=== PATIENT | female | born 1990 | race Caucasian/White ===

== ENCOUNTER 2024-07-05 07:43 | Inpatient (IN) ==
--- NOTE | 2024-07-05 08:29 | History & Physical Report ---
Date of Service July 05, 2024 Assessment & Plan (1) Hypertension affecting in third trimester: (2) Obesity affecting , antepartum: Plan -Vital signs stable -GBS negative - Category Trace I -Start Pitocin - Insert Cervical Joe Balloon - Wants to try unmedicated delivery - Ordered labs for today Admission and Anticipated Discharge Date Admission Date: July 05, 2024 History of Present Illness Chief Complaint: Induction of Labor Primary Care Provider: NO PCP Patient is a 33 yo female currently at 37+3WGA with an TACO 07/24/2024 as determined by LMP who is here for induction of labor. Her was complicated by Obesity and Hypertension Not felt contractions ; movement present; no fluid loss; had bloody show External FHT and external uterine monitors used; category I tracing; normal FHT variability Had regular appointments with OB. Allergies Allergy/AdvReac Type Severity Reaction Status Date / Time Beef Containing Products Allergy Gastrointestinal Verified 07/05/24 09:29 Upset dextromethorphan AdvReac Intermediate Gastrointestinal Verified 07/05/24 08:15 [From NyQuil] Upset doxylamine [From NyQuil] AdvReac Intermediate Gastrointestinal Verified 07/05/24 08:15 Upset pseudoephedrine [From NyQuil] AdvReac Intermediate Gastrointestinal Verified 07/05/24 08:15 Upset Home Medications Medication Instructions Recorded Confirmed Type aspirin 81 mg tablet,delayed 81 mg PO DAILY 02/08/24 07/05/24 History release docosahexaenoic acid 200 mg 1 mg PO DAILY 03/08/24 07/05/24 History capsule ( DHA) cetirizine 10 mg tablet (Zyrtec) 10 mg PO DAILY 07/05/24 07/05/24 History Patient History Medical History (Updated 07/05/24 @ 08:14 by Michelle Moss RN) Pre-eclampsia Dx at 35 weeks. Migraine Varicella vaccination No pertinent family history Irritable bowel syndrome (IBS) Ovarian cyst Surgical History S/P cubital tunnel release Family History Grandfather (Maternal) Colorectal cancer Father Hypertension Grandmother (Paternal) Heart disease Grandfather (Paternal) Stroke Grandmother (Maternal) Stroke Denies family history of Ovarian cancer Breast cancer Social History (Updated 07/05/24 @ 08:15 by Michelle Moss RN) Smoking Status: Never smoker Do You Dip or Chew Tobacco: No; Hx Alcohol Use: No Hx Substance Use: No Preferred Language: Pashto Visual Impairment: No Limitations Accounts Payable Technician Required: No Beliefs That Will Affect Care: None marital status: marital status details: Kiko Rodriguez Current Living Situation: Spouse and Family Current Living Situation Comment: lives with spouse, step son, cats-spouse changing litter current occupational status: employed 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 No acute distress CV: Regular rate and rhythm. No murmurs. Respiratory: CTA bilaterally. No rhonchi, wheezes, or crackles. No increased work of breathing. Abdomen: Gravid; Soft, nontender upon palpation Lower extremities: No LE edema. No deep calf pain. Ofelia's negative bilaterally. Results & Data Vital Signs (Past 12 Hours) Vital Signs Pulse BP 07/05/24 08:03 88 143/88 H Supervising Physician Co-Signing Physician Notes Resident Physician Supervision Note: I was present with Dr. Blanco during the history and exam. I discussed the case with the resident and agree with the findings and plan as documented in the note. Any exceptions or clarifications are listed here: 33yo at 37wks ega presents to LD for planned induction for preeclampsia, no severe features. Has mild solano this am, did take tylenol at home. No other concerns. Unfavorable cx and had planned joe ripening balloon last pm but due to census was unable to come. That and pitocin planned for today. Exam, abd soft gravid nt, efw 7, no ruq pain. ext tr edema. dtrs +1 no clonus. fhts categ 1. sve ft/long/high/post. toco irregular. PROCEDURE: sse cx visualized, grasped on ant lip with ring forcep, joe through os and balloon inflated with 40cc sterile water. Spec removed, joe taped to leg. pt yoni well. Will plan labs. admit, iv, start pitocin. arom when able. pt and partner agreeable. Documented By: Lori Mckenzie MD, FACOG
[2024-07-05] MEDS ORDERED: LIDOCAINE 1% LOCAL 20 ML VIAL INFIL PRN (08:53)
[2024-07-05] MEDS ORDERED: OXYTOCIN 30 UNITS/NSS 30 UNITS/500 ML BAG IV PRN (08:53)
[2024-07-05] MEDS: OXYTOCIN 30 UNITS/NSS 30 UNITS/500 ML BAG IV PRN (09:22)
[2024-07-05] MEDS: LACTATED RINGER'S 1,000 ML IV PRN (09:22)
[2024-07-05 10:11] LABS: Hematocrit (blood only) 34.8 % (37.0-47.0); Hemoglobin 11.7 g/dl (12.0-16.0); Mean Corpuscular Hemoglobin 30.2 pg (25.0-34.0); Mean Corpuscular Hgb Conc 33.6 g/dL (32.0-36.0); Mean Corpuscular Volume 89.7 fL (80.0-100.0); Mean Platelet Volume 10.6 fL (9.4-12.4); Platelet Count 255 K/uL (130-400); RDW Standard Deviation 45.3 fL (36.4-46.3); Red Blood Count 3.88 M/uL (4.20-5.40); White Blood Count 14.74 K/ul (4.8-10.8)
[2024-07-05 10:31] LABS: Albumin Globulin Ratio 1.2 (0.9-2); Albumin Level 3.2 gm/dl (3.4-5.0); Bilirubin,Total 0.4 mg/dl (0.2-1.0); Calcium 8.8 mg/dl (8.6-10.3); Creatinine Clr Calc Pharmacy 189.3 ml/min; Globulin 2.6 gm/dl (2.5-4.0); Potassium 3.8 mmol/L (3.5-5.1); Total Protein 5.8 gm/dl (6.0-8.3)
[2024-07-05] MEDS: BUTORPHANOL TARTRATE 1 MG/ML VIAL ONE (14:41)
[2024-07-05] MEDS: BUTORPHANOL TARTRATE 1 MG/ML VIAL IV ONE (15:01)
--- NOTE | 2024-07-05 16:09 | Labor Progress Brief Note ---
Date of Service July 05, 2024 Subjective feeling pain with ctx. used stadol earlier and helped. Assessment & Plan (1) Encounter for induction of labor: (2) Pre-eclampsia: Plan will see how arom helps labor pattern. fhts categ 1. c/w pit. can have another dose of stadol if she wants. Admission and Anticipated Discharge Date Admission Date: July 05, 2024 Physical Exam Constitutional: WD/WN, vitals as above Genitourinary: Manual OB Exam: + cervical dilation (2-3), + cervical effacement (75%), + station -2 and + amniotic fluid (arom) clear OB Exam Monitor Tracing: + external FHT monitor used, + external uterine monitor used (q2, pit at 17), + category I and + normal FHT variability Results & Data Vital Signs (Past 12 Hours) Vital Signs Temp Pulse Resp BP 07/05/24 15:24 68 130/67 07/05/24 15:00 20 07/05/24 15:00 98.1 F 20 07/05/24 14:24 74 137/68 07/05/24 13:24 77 164/83 H 07/05/24 12:25 83 149/77 H 07/05/24 11:24 70 128/69 07/05/24 11:00 98.2 F 20 07/05/24 10:51 71 112/57 L 07/05/24 10:31 69 114/62 07/05/24 09:23 85 122/72 07/05/24 08:11 98.2 F 16 07/05/24 08:03 88 143/88 H Coding Level of Care Code None Diagnoses Encounter for induction of labor Z34.90 Pre-eclampsia O14.90
--- NOTE | 2024-07-05 18:54 | Labor Progress Brief Note ---
Date of Service July 05, 2024 Subjective doing well, feels ctx. no solano. Assessment & Plan (1) Encounter for induction of labor: (2) Pre-eclampsia: Plan good cx change. c/w pitocin. fhts categ1. bps noted. Admission and Anticipated Discharge Date Admission Date: July 05, 2024 Physical Exam Constitutional: WD/WN, vitals as above Genitourinary: Manual OB Exam: + cervical dilation 3 cm, + cervical effacement (75%) and + station -2 OB Exam Monitor Tracing: + external FHT monitor used, + external uterine monitor used (q3), + category I and + normal FHT variability Results & Data Vital Signs (Past 12 Hours) Vital Signs Temp Pulse Resp BP 07/05/24 18:24 96 H 144/88 H 07/05/24 17:00 98.2 F 07/05/24 16:24 75 150/69 H 07/05/24 15:24 68 130/67 07/05/24 15:00 20 07/05/24 15:00 98.1 F 20 07/05/24 14:24 74 137/68 07/05/24 13:24 77 164/83 H 07/05/24 12:25 83 149/77 H 07/05/24 11:24 70 128/69 07/05/24 11:00 98.2 F 20 07/05/24 10:51 71 112/57 L 07/05/24 10:31 69 114/62 07/05/24 09:23 85 122/72 07/05/24 08:11 98.2 F 16 07/05/24 08:03 88 143/88 H Coding Level of Care Code None Diagnoses Encounter for induction of labor Z34.90 Pre-eclampsia O14.90
[2024-07-05] MEDS: ACETAMINOPHEN 325 MG TAB PO STA (21:19)
[2024-07-05] MEDS: BUTORPHANOL TARTRATE 1 MG/ML VIAL IV PRN (21:20)
--- NOTE | 2024-07-05 21:44 | Labor Progress Brief Note ---
Date of Service July 05, 2024 Subjective feeling pain with ctx. requested stadol and now feeling better. had her typical mild solano and took Tylenol. Assessment & Plan (1) Encounter for induction of labor: (2) Pre-eclampsia: Plan we will cont with pit but if after reaching 30 for 30min if no signif status change, will halve pit and reclimb. discussed benefits that epidural could bring with pelvis relaxation, pt will consider. of note few bps in height of more pain were elevated but improved now and plan recheck in 30min but if persistent elevation will need meds. pt aware. fhts categ 1. Admission and Anticipated Discharge Date Admission Date: July 05, 2024 Physical Exam Constitutional: WD/WN, vitals as above Genitourinary: Manual OB Exam: + cervical dilation 3 cm, + cervical effacement (75%) and + station -2 OB Exam Monitor Tracing: + external FHT monitor used, + external uterine monitor used (q2-4 pit at 27), + category I and + normal FHT variability Results & Data Vital Signs (Past 12 Hours) Vital Signs Temp Pulse Resp BP 07/05/24 21:05 20 07/05/24 21:05 98.2 F 20 07/05/24 20:29 90 161/75 H 07/05/24 20:27 100 H 179/81 H 07/05/24 20:24 96 H 195/86 H 07/05/24 19:24 93 H 149/78 H 07/05/24 18:58 98.4 F 90 18 137/72 07/05/24 18:24 96 H 144/88 H 07/05/24 17:00 98.2 F 07/05/24 16:24 75 150/69 H 07/05/24 15:24 68 130/67 07/05/24 15:00 20 07/05/24 15:00 98.1 F 20 07/05/24 14:24 74 137/68 07/05/24 13:24 77 164/83 H 07/05/24 12:25 83 149/77 H 07/05/24 11:24 70 128/69 07/05/24 11:00 98.2 F 20 07/05/24 10:51 71 112/57 L 07/05/24 10:31 69 114/62 Coding Level of Care Code None Diagnoses Encounter for induction of labor Z34.90 Pre-eclampsia O14.90
[2024-07-05] MEDS ORDERED: ePHEDrine sulfate 50 MG/ML AMP IV PRN (23:28)
[2024-07-05] MEDS ORDERED: SODIUM CHLORIDE 0.9% PF INJ 10 ML VIAL EPI STA (23:28)
[2024-07-05] MEDS ORDERED: SODIUM CHLORIDE 0.9% PF INJ 10 ML VIAL EPI PRN (23:28)
[2024-07-05] MEDS ORDERED: ROPIVACAINE 0.5% PF 5 MG/ML 20 ML VIAL EPI PRN (23:28)
[2024-07-05] MEDS ORDERED: LIDOCAINE 2%/EPINEPHRINE 1:200,000 20 ML PF EPI STA (23:28)
[2024-07-05] MEDS ORDERED: BUPIVACAINE 0.25% PF 30 ML VIAL EPI PRN (23:28)
[2024-07-05] MEDS ORDERED: BUPIVACAINE 0.25% PF 30 ML VIAL EPI STA (23:28)
[2024-07-05] MEDS ORDERED: diphenhydrAMINE 50 MG/ML VIAL IV PRN (23:28)
[2024-07-05] MEDS ORDERED: NALOXONE HCL 0.4 MG/1 ML VIAL/CARP IV PRN (23:28)
[2024-07-05] MEDS ORDERED: LIDOCAINE 2% MPF LOCAL 5 ML VIAL EPI PRN (23:28)
[2024-07-05] MEDS ORDERED: NALOXONE HCL 1 MG in SODIUM CHLORIDE 0.9% 1,000 ML IV PRN (23:28)
[2024-07-05] MEDS ORDERED: fentaNYL citrate PF 100 MCG/2 ML VIAL EPI PRN (23:28)
[2024-07-05] MEDS ORDERED: fentaNYL citrate PF 100 MCG/2 ML VIAL EPI STA (23:28)
[2024-07-05] MEDS ORDERED: NALBUPHINE HCL INJ 10 MG/ML AMP IV PRN (23:28)
--- NOTE | 2024-07-05 23:29 | Anesthesiology Consultation ---
Date of Service July 05, 2024 Assessment & Plan (1) Encounter for pre-operative examination: Chart Review Chart Review: Patient NOT seen in Pre Admission Testing and Acceptable Risk for Labor Epidural Consults Requested none History Height/Weight Height: 5 ft 1 in Weight: 115.666 kg Allergies Allergy/AdvReac Type Severity Reaction Status Date / Time Beef Containing Products Allergy Gastrointestinal Verified 07/05/24 09:29 Upset dextromethorphan AdvReac Intermediate Gastrointestinal Verified 07/05/24 08:15 [From NyQuil] Upset doxylamine [From NyQuil] AdvReac Intermediate Gastrointestinal Verified 07/05/24 08:15 Upset pseudoephedrine [From NyQuil] AdvReac Intermediate Gastrointestinal Verified 07/05/24 08:15 Upset Medications Home Medications Medication Instructions Recorded Confirmed Last Taken aspirin 81 mg tablet,delayed 81 mg PO DAILY 02/08/24 07/05/24 07/05/24 release docosahexaenoic acid 200 mg 1 mg PO DAILY 03/08/24 07/05/24 07/05/24 capsule ( DHA) cetirizine 10 mg tablet (Zyrtec) 10 mg PO DAILY 07/05/24 07/05/24 07/05/24 Active Medications Generic Name Dose Route Start Last Admin Trade Name Freq PRN Reason Stop Dose Admin Butorphanol Tartrate 1 mg 07/05/24 16:11 07/05/24 21:20 Butorphanol Tartrate 1 Mg/Ml Vial IV 08/04/24 16:10 1 mg NOW PRN Administration Pain Lactated Ringer's 1,000 mls @ 125 mls/hr 07/05/24 08:53 07/05/24 23:48 Lr IV 07/06/24 08:52 Infused .Q8H PRN Infusion L&D Protocol Protocol Oxytocin 30 units in 500 mls @ 15 mls/hr 07/05/24 08:53 07/05/24 23:05 Pitocin 30 Units/Nss IV 07/07/24 08:52 0.9 units/hr .Q24H PRN 15 mls/hr Labor Induction/Augmentation Titration Protocol 0.9 UNITS/HR Past Medical History Medical History (Updated 07/05/24 @ 23:29 by Alin Loepz MD) Encounter for pre-operative examination Migraine Varicella vaccination No pertinent family history Irritable bowel syndrome (IBS) Ovarian cyst Exercise / Class Metabolic Activity II 4-5 Yardwork/Stairs/Walk up hill Past Family History Family History Grandfather (Maternal) Colorectal cancer Father Hypertension Grandmother (Paternal) Heart disease Grandfather (Paternal) Stroke Grandmother (Maternal) Stroke Denies family history of Ovarian cancer Breast cancer Past Surgical History Surgical History S/P cubital tunnel release Social History Smoking Status: Never smoker Do You Dip or Chew Tobacco: No Hx Alcohol Use: No Hx Substance Use: No substance use type: does not use Physical Exam Vital Signs Last Vital Signs Temp 36.6 C 07/05/24 23:00 Pulse 93 H 07/05/24 23:50 Resp 18 07/05/24 23:00 BP 156/76 H 07/05/24 22:29 Pulse Ox 100 07/05/24 23:50 Testing Laboratory Results 07/05/24 09:31 07/05/24 09:31 Blood Type A Positive 07/05/24 09:31 Antibody Screen NEGATIVE 07/05/24 09:31
[2024-07-05] MEDS: fentaNYL citrate PF 100 MCG/2 ML VIAL ONE (23:54)
[2024-07-05] MEDS: BUPIVACAINE 0.25% PF 30 ML VIAL ONE (23:54)
[2024-07-05] MEDS: LIDOCAINE 2%/EPINEPHRINE 1:200,000 20 ML PF ONE (23:54)
[2024-07-05] MEDS: fentANYL 2 MCG/ML BUPIVacaine 0.125%-NSS 100ML BAG ONE (23:55)
[2024-07-06] MEDS: SODIUM CHLORIDE 0.9% PF INJ 10 ML VIAL ONE (01:58)
[2024-07-06] MEDS: ePHEDrine sulfate 50 MG/ML AMP ONE (01:58)
[2024-07-06] MEDS: ACETAMINOPHEN 325 MG TAB PO ONE (07:40)
[2024-07-06] MEDS: fentANYL 2 MCG/ML BUPIVacaine 0.125%-NSS 100ML BAG EPI PRN (07:54)
[2024-07-06] MEDS ORDERED: NURSING L&D Epidural Breakthrough Pain Update ONE (07:57)
[2024-07-06] MEDS: ONDANSETRON INJ 2 MG/ML 2 ML VIAL IV PRN (08:10)
[2024-07-06] MEDS ORDERED: fentaNYL citrate PF 100 MCG/2 ML VIAL ONE (09:28)
[2024-07-06] MEDS ORDERED: LIDOCAINE 2%/EPINEPHRINE 1:200,000 20 ML PF ONE (09:28)
[2024-07-06] MEDS ORDERED: LACTATED RINGER'S 1,000 ML IV SCH ×3 (09:30→11:15)
--- NOTE | 2024-07-06 09:38 | Labor Progress Brief Note ---
Date of Service July 06, 2024 Subjective Comfortable with epidural after recent boluses / PUBLIC WORKS MANAGER use, except for residual low back / hip dull ache per pt. Assessment & Plan (1) Pre-eclampsia: Plan: IOL underway, cervix has been slow to dilate and pitocin has been at max doses without ability to hold consistently adequate MVU. Significant molding and hip/back breakthrough pain also suggestive of CPD. Discussed options with Pt, FOB and pt mother. Can continue IOL but need to heed the warning signs present that delivery may be higher risk for dystocia/tight fit/long push, PPH, etc. Can change to CSec but would be foregoing opportunity to avoid surgical risk. At this point, patient shares that her priorities include well-being and having a controlled delivery without any urgency or "surprises." Her personal preferences and goals are likely best addressed by CSec and we will change plan to that route at this point. Admission and Anticipated Discharge Date Admission Date: July 05, 2024 Physical Exam Genitourinary: Cvx 6/80/-2 with significant molding and puffy cervical texture. FHT Cat 1 Sterrett Q2 but not adequate MVU Pit @ 30. Results & Data Vital Signs (Past 12 Hours) Vital Signs Temp Pulse Resp BP Pulse Ox 07/06/24 09:25 104 H 100 07/06/24 09:20 103 H 100 07/06/24 09:16 108 H 139/77 07/06/24 09:15 102 H 100 07/06/24 09:10 107 H 100 07/06/24 09:05 97 H 100 07/06/24 09:01 96 H 135/68 07/06/24 09:00 98 H 18 100 07/06/24 08:55 99 H 100 07/06/24 08:50 98 H 100 07/06/24 08:46 98 H 141/75 H 07/06/24 08:45 95 H 100 07/06/24 08:40 98 H 100 07/06/24 08:35 98 H 100 07/06/24 08:32 98 H 136/73 07/06/24 08:30 96 H 16 100 07/06/24 08:25 99 H 99 07/06/24 08:20 98 H 100 07/06/24 08:18 102 H 148/73 H 07/06/24 08:15 100 H 99 07/06/24 08:10 102 H 99 07/06/24 08:05 119 H 100 07/06/24 08:02 102 H 157/75 H 07/06/24 08:00 105 H 100 07/06/24 07:55 103 H 100 07/06/24 07:50 100 H 100 07/06/24 07:46 100 H 147/77 H 07/06/24 07:45 102 H 100 07/06/24 07:40 103 H 100 07/06/24 07:35 99 H 100 07/06/24 07:32 97 H 135/72 07/06/24 07:30 101 H 100 07/06/24 07:25 98 H 100 07/06/24 07:20 101 H 100 07/06/24 07:17 95 H 134/78 07/06/24 07:15 99 H 100 07/06/24 07:10 98 H 99 07/06/24 07:05 99.0 F 16 07/06/24 07:05 99.0 F 102 H 99 07/06/24 07:01 90 144/72 H 07/06/24 07:00 96 H 99 07/06/24 06:55 94 H 99 07/06/24 06:50 95 H 98 07/06/24 06:46 99 H 147/80 H 07/06/24 06:45 94 H 99 07/06/24 06:40 98 H 100 07/06/24 06:35 98 H 100 07/06/24 06:31 99 H 139/73 07/06/24 06:30 98 H 100 07/06/24 06:25 99 H 100 07/06/24 06:20 102 H 100 07/06/24 06:17 93 H 143/82 H 07/06/24 06:15 95 H 99 07/06/24 06:10 96 H 99 07/06/24 06:05 93 H 98 07/06/24 06:03 93 H 160/75 H 07/06/24 06:00 91 H 99 07/06/24 05:55 93 H 99 07/06/24 05:50 92 H 99 07/06/24 05:48 93 H 160/74 H 07/06/24 05:45 91 H 99 07/06/24 05:40 92 H 99 07/06/24 05:35 93 H 98 07/06/24 05:33 96 H 152/74 H 07/06/24 05:30 92 H 99 07/06/24 05:25 92 H 99 07/06/24 05:20 97 H 99 07/06/24 05:15 101 H 100 07/06/24 05:10 86 100 07/06/24 05:05 92 H 99 07/06/24 05:02 85 150/75 H 07/06/24 05:00 98.6 F 94 H 16 100 07/06/24 04:55 86 99 07/06/24 04:50 85 99 07/06/24 04:47 87 151/70 H 07/06/24 04:45 87 97 07/06/24 04:40 87 98 07/06/24 04:35 87 98 07/06/24 04:32 86 144/66 H 07/06/24 04:30 91 H 98 07/06/24 04:25 88 98 07/06/24 04:20 88 98 07/06/24 04:16 87 143/68 H 07/06/24 04:15 87 99 07/06/24 04:10 88 98 07/06/24 04:05 86 97 07/06/24 04:02 88 133/80 07/06/24 04:00 86 97 07/06/24 03:55 84 97 07/06/24 03:50 84 98 07/06/24 03:48 85 139/79 07/06/24 03:45 84 97 07/06/24 03:40 85 97 07/06/24 03:35 85 98 07/06/24 03:32 85 138/75 07/06/24 03:30 84 99 07/06/24 03:25 86 98 07/06/24 03:20 89 99 07/06/24 03:17 98.4 F 86 133/74 07/06/24 03:15 88 100 07/06/24 03:10 91 H 99 07/06/24 03:05 93 H 98 07/06/24 03:01 96 H 130/65 07/06/24 03:00 99 H 98 07/06/24 02:55 91 H 98 07/06/24 02:50 92 H 97 07/06/24 02:46 91 H 134/65 07/06/24 02:45 92 H 98 07/06/24 02:40 90 98 07/06/24 02:35 94 H 97 07/06/24 02:31 91 H 133/66 07/06/24 02:30 91 H 98 07/06/24 02:25 92 H 98 07/06/24 02:20 88 98 07/06/24 02:16 93 H 138/74 07/06/24 02:15 92 H 99 07/06/24 02:10 98 H 99 07/06/24 02:08 16 07/06/24 02:08 98.6 F 16 07/06/24 02:05 89 100 07/06/24 02:01 91 H 135/68 07/06/24 02:00 92 H 99 07/06/24 01:55 90 99 07/06/24 01:50 88 99 07/06/24 01:46 92 H 129/71 07/06/24 01:45 91 H 98 07/06/24 01:40 91 H 98 07/06/24 01:35 87 99 07/06/24 01:31 91 H 128/63 07/06/24 01:30 89 99 07/06/24 01:25 90 98 07/06/24 01:20 87 99 07/06/24 01:17 90 127/67 07/06/24 01:15 89 99 07/06/24 01:10 89 100 07/06/24 01:05 90 99 07/06/24 01:02 93 H 120/64 07/06/24 01:00 93 H 99 07/06/24 00:55 92 H 98 07/06/24 00:50 91 H 98 07/06/24 00:47 93 H 126/58 L 07/06/24 00:45 90 98 07/06/24 00:40 90 99 07/06/24 00:35 88 99 07/06/24 00:33 91 H 125/63 07/06/24 00:30 91 H 100 07/06/24 00:25 93 H 100 07/06/24 00:20 93 H 100 07/06/24 00:15 98.1 F 100 H 18 125/72 100 07/06/24 00:10 96 H 100 07/06/24 00:06 100 H 133/74 07/06/24 00:05 101 H 100 07/06/24 00:03 93 H 129/67 07/06/24 00:00 98 H 133/73 100 07/05/24 23:57 102 H 131/73 07/05/24 23:55 99 H 100 07/05/24 23:54 100 H 135/73 07/05/24 23:50 93 H 100 07/05/24 23:45 102 H 100 07/05/24 23:40 97 H 100 07/05/24 23:35 99 H 100 07/05/24 23:00 18 07/05/24 23:00 97.9 F 18 07/05/24 22:29 91 H 156/76 H 07/05/24 22:25 92 H 160/83 H 07/05/24 21:55 93 H 146/81 H Coding Level of Care Code None Diagnoses Pre-eclampsia O14.90
[2024-07-06] MEDS ORDERED: OXYTOCIN 10 UNITS/ML VIAL ONE ×4 (09:43→10:46)
[2024-07-06] MEDS: ceFAZolin 3000MG 3,000 MG/72.5 ML BAG IV SCH (09:45)
[2024-07-06] MEDS: CITRIC ACID/SODIUM CITRATE 15 ML UDC PO SCH (09:47)
[2024-07-06] MEDS: AZITHROMYCIN 500 MG/255 ML BAG IV SCH (09:51)
[2024-07-06] MEDS ORDERED: MoRPHine SULFATE PF 1 MG/ML 10 ML AMP/VIAL ONE (10:12)
[2024-07-06] MEDS ORDERED: PHENYLEPHRINE 100MCG/ML 10ML SYR IV ONE (10:28)
[2024-07-06] MEDS ORDERED: diphenhydrAMINE 50 MG/ML VIAL ONE (10:35)
[2024-07-06] MEDS ORDERED: DC INTRASPINAL MORPHINE SCH (10:45)
[2024-07-06] MEDS ORDERED: NALBUPHINE HCL INJ 10 MG/ML AMP IV PRN (10:45)
[2024-07-06] MEDS ORDERED: oxyCODONE HCL IR 5 MG TAB (IMMEDIATE RELEASE) PO PRN (10:45)
[2024-07-06] MEDS ORDERED: NO NARCOTICS OR SEDATIVES SCH (10:45)
[2024-07-06] MEDS ORDERED: ONDANSETRON INJ 2 MG/ML 2 ML VIAL IV PRN (10:45)
[2024-07-06] MEDS ORDERED: NALOXONE HCL 1 MG in SODIUM CHLORIDE 0.9% 1,000 ML IV PRN (10:45)
[2024-07-06] MEDS ORDERED: NALOXONE HCL 0.4 MG/1 ML VIAL/CARP IV PRN (10:45)
[2024-07-06] MEDS ORDERED: DROPERIDOL 5 MG/2 ML VIAL IV PRN (10:45)
[2024-07-06] MEDS ORDERED: MoRPHine SULFATE PF 1 MG/ML 10 ML AMP/VIAL EPI ONE (10:45)
[2024-07-06] MEDS ORDERED: ePHEDrine sulfate 50 MG/ML AMP IV PRN (10:45)
[2024-07-06] MEDS ORDERED: HYDROmorphone INJ 0.5 MG/0.5 ML SYR IV PRN (10:45)
[2024-07-06] MEDS ORDERED: DIPHTHER/TETAN/PERTUS Vaccine (Tdap, Adol/Adult) 0.5mL IM ONE (11:10)
[2024-07-06] MEDS ORDERED: CALCIUM CARBONATE 500 MG CHEWABLE TAB PO PRN (11:10)
[2024-07-06] MEDS ORDERED: HYDROCORTISONE ACETATE 25 MG SUPP PR PRN (11:10)
[2024-07-06] MEDS ORDERED: MAGNESIUM HYDROXIDE SUSP 30 ML UDC PO PRN (11:10)
[2024-07-06] MEDS ORDERED: SENNA 8.6 MG TAB PO PRN (11:10)
[2024-07-06] MEDS ORDERED: BENZOCAINE 20% SPRY 85 APPLN/85 GM CAN EXT PRN (11:10)
--- NOTE | 2024-07-06 11:16 | Operative Report ---
PG Post Operative Report Pre & Post Diagnosis Operation Date: 07/06/24 09:35 Pre-Op Diagnosis: at term Preeclampsia without severe features Induction of Labor Failure to progress Post-Op Diagnosis: Above, plus Bilateral cervical extensions of hysterotomy I identified the patient and participated in the time-out.: Yes Procedure Operation Date: 07/06/24 09:35 Actual Procedures 1' Low Transverse Section with Extensive bilateral lacerations of the cervix Surgeon Meg Cantu MD Motor Vehicle Field Representative Yaa Duran RN Estimated Blood Loss 994 Findings Consistent with Post-Op Diagnosis Specimens Placenta, Cord blood Anesthesia Type L&D Only Epidural Exists Complications none Disposition Accompanied Patient To Recovery: Yes Disposition: Recovery Room Description of Procedure The patient was placed operating table in the supine position with a leftward tilt. She was prepped and draped in standard sterile fashion. The anesthetic was tested and found to be adequate. A time-out was held, identifying correct patient, procedure, positioning and preoperative antibiotics. There were no concerns. A Pfannenstiel skin incision was made with a knife and taken down to the underlying layer of fascia. The fascia was incised in the midline with the knife and taken out laterally with scissors. The superior edge of the fascial incision was grasped, elevated and dissected off the underlying rectus both superiorly and inferiorly. The muscles were bluntly in the midline. The peritoneum was entered bluntly. The incision was then stretched. The bladder retractor was placed. Significant intraperitoneal ascites as encountered and suctioned away. The vesicouterine peritoneum was identified, entered with scissors and taken out laterally with scissors. The bladder flap was developed digitally. Although the serosa/peritoneum overlying the TEDDY appeared normal, an unusual degree of distention and dark discoloration of the TEDDY distal to the bladder flap (so, involving the TEDDY and anterior cervical tissue) was noted once the peritoneum was opened. A hysterotomy incision was created transversely in the lower uterine segment, final entry being accomplished in a blunt manner with the yardage tufting machine operator's fingers. The myometrium of the inferior aspect of the hysterotomy was noted to be unusually soft. Clear amniotic fluid was encountered. The yardage tufting machine operator's hand was used to identify the head which was still high, and to elevate the head to the hysterotomy. The head was delivered using mild fundal pressure, and the shoulders and body followed without difficulty. The cord was clamped and cut and the infant was then handed off to the awaiting instructional technology coordinator. Cord blood was obtained. The placenta was Manually extracted. The uterus was exteriorized and cleared of all clot and debris with moistened laparotomy sponges. Inspection revealed a transverse hysterotomy as well as bilateral cervical extensions which reached well below the bladder dome. This extended more than 50% down the cervix on each side, but not to / through the bottom of the cervix, essentially creating a "flap" out of the inferior myometrial edge. The apex was identified on each side as the bladder was retracted anteriorly out of the way, with attention to the location of the trigone. 0-vicryl was used to repair these cervical extensions from each apex back up to the level of the hysterotomy and then carried across the hysterotomy to close the uterus, joining closures in the middle. A second imbricating layer was run from one cervical apex across the incision and down the other cervical apex in a linear non-locked fashion. The bladder was intact and the joe tubing had clear urine after this step. The ovaries and tubes were seen to be normal bilaterally. The uterus was gently replaced in the abdomen, and the gutters were cleared of clot and debris. A final inspection of the hysterotomy revealed good hemostasis. The rectus muscles were allowed to reapproximate naturally. The fascia was then reapproximated with 1 Vicryl in a running nonlocked manner. The fascia was examined and found to be free of defect following closure. The subcutaneous tissue was copiously irrigated and reapproximated with 0-chromic, then the skin edges were closed with 4-0 monocryl in a subcuticular fashion. A NERI dressing was applied. The joe was found to be draining clear yellow urine again at completion of the procedure. Discussion was held with the patient postoperatively regarding the nature of her uterine incision / repair. I suspect that pressure from the head against the TEDDY/anterior cervix during labor significantly weakened and bruised that tissue, and that this occurred due to CPD with a narrow pelvic inlet. The result was that although a transverse hysterotomy was created, and no special effort was required to effect delivery of the head through that hysterotomy, her final uterine repair was NOT a typical transverse incision but a "bucket handle" type incision reaching down both sides of the anterior cervix. I do not recommend she be considered a candidate, and patient confirmed she understood the need for delivery with future pregnancies. I attest to the content of the Intraoperative Record and any orders documented therein. Any exceptions are noted below. I attest to the content of the Intraoperative Record and any orders documented therein. Any exceptions are noted below. OB Procedure Charges 27058
--- NOTE | 2024-07-06 12:21 | Anesthesiology Progress Note ---
Date of Service July 06, 2024 Anesthesia Post Procedure Vital Signs Vital Signs: Temp Pulse Resp BP Pulse Ox 07/06/24 12:15 85 98 07/06/24 12:13 86 115/56 L 07/06/24 12:10 88 98 07/06/24 12:05 86 97 07/06/24 12:00 91 H 134/59 L 96 07/06/24 11:55 87 97 07/06/24 11:50 89 121/57 L 97 07/06/24 11:45 94 H 97 07/06/24 11:40 16 07/06/24 11:40 89 108/53 L 97 07/06/24 11:36 88 117/56 L 07/06/24 11:35 196 H 73 L 07/06/24 11:31 104 H 91 07/06/24 11:30 16 07/06/24 11:30 90 100 07/06/24 11:28 91 H 142/58 H 07/06/24 11:26 99 H 92 07/06/24 11:25 93 H 99 07/06/24 11:20 16 07/06/24 11:20 96 H 100 07/06/24 11:15 92 H 100 07/06/24 11:10 20 07/06/24 11:10 94 H 100 07/06/24 11:05 96 H 100 07/06/24 11:02 200 H 129/81 07/06/24 11:00 36.8 C 16 07/06/24 11:00 101 H 100 07/06/24 09:50 113 H 100 07/06/24 09:46 108 H 132/63 07/06/24 09:45 109 H 100 07/06/24 09:40 106 H 100 07/06/24 09:38 102 H 140/65 07/06/24 09:35 104 H 100 07/06/24 09:30 102 H 18 100 07/06/24 09:25 104 H 100 07/06/24 09:20 103 H 100 07/06/24 09:16 108 H 139/77 07/06/24 09:15 102 H 100 07/06/24 09:10 107 H 100 07/06/24 09:05 97 H 100 07/06/24 09:01 96 H 135/68 07/06/24 09:00 98 H 18 100 07/06/24 08:55 99 H 100 07/06/24 08:50 98 H 100 07/06/24 08:46 98 H 141/75 H 07/06/24 08:45 95 H 100 07/06/24 08:40 98 H 100 07/06/24 08:35 98 H 100 07/06/24 08:32 98 H 136/73 07/06/24 08:30 96 H 16 100 07/06/24 08:25 99 H 99 07/06/24 08:20 98 H 100 07/06/24 08:18 102 H 148/73 H 07/06/24 08:15 100 H 99 07/06/24 08:10 102 H 99 07/06/24 08:05 119 H 100 07/06/24 08:02 102 H 157/75 H 07/06/24 08:00 105 H 100 07/06/24 07:55 103 H 100 07/06/24 07:50 100 H 100 07/06/24 07:46 100 H 147/77 H 07/06/24 07:45 102 H 100 07/06/24 07:40 103 H 100 07/06/24 07:35 99 H 100 07/06/24 07:32 97 H 135/72 07/06/24 07:30 101 H 100 07/06/24 07:25 98 H 100 07/06/24 07:20 101 H 100 07/06/24 07:17 95 H 134/78 07/06/24 07:15 99 H 100 07/06/24 07:10 98 H 99 07/06/24 07:05 37.2 C 16 07/06/24 07:05 37.2 C 102 H 99 07/06/24 07:01 90 144/72 H 07/06/24 07:00 96 H 99 07/06/24 06:55 94 H 99 07/06/24 06:50 95 H 98 07/06/24 06:46 99 H 147/80 H 07/06/24 06:45 94 H 99 07/06/24 06:40 98 H 100 07/06/24 06:35 98 H 100 07/06/24 06:31 99 H 139/73 07/06/24 06:30 98 H 100 07/06/24 06:25 99 H 100 07/06/24 06:20 102 H 100 03/22/25 06:17 93 H 143/82 H 07/06/24 06:15 95 H 99 07/06/24 06:10 96 H 99 07/06/24 06:05 93 H 98 07/06/24 06:03 93 H 160/75 H 07/06/24 06:00 91 H 99 07/06/24 05:55 93 H 99 07/06/24 05:50 92 H 99 07/06/24 05:48 93 H 160/74 H 07/06/24 05:45 91 H 99 07/06/24 05:40 92 H 99 07/06/24 05:35 93 H 98 07/06/24 05:33 96 H 152/74 H 07/06/24 05:30 92 H 99 07/06/24 05:25 92 H 99 07/06/24 05:20 97 H 99 07/06/24 05:15 101 H 100 07/06/24 05:10 86 100 07/06/24 05:05 92 H 99 07/06/24 05:02 85 150/75 H 07/06/24 05:00 37.0 C 94 H 16 100 07/06/24 04:55 86 99 07/06/24 04:50 85 99 07/06/24 04:47 87 151/70 H 07/06/24 04:45 87 97 07/06/24 04:40 87 98 07/06/24 04:35 87 98 07/06/24 04:32 86 144/66 H 07/06/24 04:30 91 H 98 07/06/24 04:25 88 98 07/06/24 04:20 88 98 07/06/24 04:16 87 143/68 H 07/06/24 04:15 87 99 07/06/24 04:10 88 98 07/06/24 04:05 86 97 07/06/24 04:02 88 133/80 07/06/24 04:00 86 97 07/06/24 03:55 84 97 07/06/24 03:50 84 98 07/06/24 03:48 85 139/79 07/06/24 03:45 84 97 07/06/24 03:40 85 97 07/06/24 03:35 85 98 07/06/24 03:32 85 138/75 07/06/24 03:30 84 99 07/06/24 03:25 86 98 07/06/24 03:20 89 99 07/06/24 03:17 36.9 C 86 133/74 07/06/24 03:15 88 100 07/06/24 03:10 91 H 99 07/06/24 03:05 93 H 98 07/06/24 03:01 96 H 130/65 07/06/24 03:00 99 H 98 07/06/24 02:55 91 H 98 07/06/24 02:50 92 H 97 07/06/24 02:46 91 H 134/65 07/06/24 02:45 92 H 98 07/06/24 02:40 90 98 07/06/24 02:35 94 H 97 07/06/24 02:31 91 H 133/66 07/06/24 02:30 91 H 98 07/06/24 02:25 92 H 98 07/06/24 02:20 88 98 07/06/24 02:16 93 H 138/74 07/06/24 02:15 92 H 99 07/06/24 02:10 98 H 99 07/06/24 02:08 16 07/06/24 02:08 37.0 C 16 07/06/24 02:05 89 100 07/06/24 02:01 91 H 135/68 07/06/24 02:00 92 H 99 07/06/24 01:55 90 99 07/06/24 01:50 88 99 07/06/24 01:46 92 H 129/71 07/06/24 01:45 91 H 98 07/06/24 01:40 91 H 98 07/06/24 01:35 87 99 07/06/24 01:31 91 H 128/63 07/06/24 01:30 89 99 07/06/24 01:25 90 98 07/06/24 01:20 87 99 07/06/24 01:17 90 127/67 07/06/24 01:15 89 99 07/06/24 01:10 89 100 07/06/24 01:05 90 99 07/06/24 01:02 93 H 120/64 07/06/24 01:00 93 H 99 07/06/24 00:55 92 H 98 07/06/24 00:50 91 H 98 07/06/24 00:47 93 H 126/58 L 07/06/24 00:45 90 98 07/06/24 00:40 90 99 07/06/24 00:35 88 99 07/06/24 00:33 91 H 125/63 07/06/24 00:30 91 H 100 07/06/24 00:25 93 H 100 07/06/24 00:20 93 H 100 07/06/24 00:15 36.7 C 100 H 18 125/72 100 07/06/24 00:10 96 H 100 07/06/24 00:06 100 H 133/74 07/06/24 00:05 101 H 100 07/06/24 00:03 93 H 129/67 07/06/24 00:00 98 H 133/73 100 07/05/24 23:57 102 H 131/73 07/05/24 23:55 99 H 100 07/05/24 23:54 100 H 135/73 07/05/24 23:50 93 H 100 07/05/24 23:45 102 H 100 07/05/24 23:40 97 H 100 07/05/24 23:35 99 H 100 07/05/24 23:00 18 07/05/24 23:00 36.6 C 18 07/05/24 22:29 91 H 156/76 H 07/05/24 22:25 92 H 160/83 H 07/05/24 21:55 93 H 146/81 H 07/05/24 21:05 20 07/05/24 21:05 36.8 C 20 07/05/24 20:29 90 161/75 H 07/05/24 20:27 100 H 179/81 H 07/05/24 20:24 96 H 195/86 H 07/05/24 19:24 93 H 149/78 H 07/05/24 18:58 36.9 C 90 18 137/72 07/05/24 18:24 96 H 144/88 H 07/05/24 17:00 36.8 C 07/05/24 16:24 75 150/69 H 07/05/24 15:24 68 130/67 07/05/24 15:00 20 07/05/24 15:00 36.7 C 20 07/05/24 14:24 74 137/68 07/05/24 13:24 77 164/83 H 07/05/24 12:25 83 149/77 H Pain Intensity Back: Pain Intensity: 5 Notes Mental Status: alert / awake / arousable Patient Amnestic to Procedure: Yes Nausea / Vomiting: adequately controlled Pain: adequately controlled Airway Patency, RR, SpO2: stable & adequate BP & HR: stable & adequate Hydration State: stable & adequate Neuraxial Anesthesia: was administered and sensory block is resolving Anesthetic Complications: no major complications apparent Notes: epidiral cath removed post op with tip intact
[2024-07-06] MEDS: KETOROLAC 30 MG/ML VIAL IV SCH ×2 (13:06→19:22)
[2024-07-06] MEDS: SIMETHICONE 80 MG CHEW PO SCH (14:14)
[2024-07-06] MEDS: OXYTOCIN 20 UNITS/LR 1,002 ML IV SCH (14:15)
[2024-07-06] MEDS ORDERED: Nursing to Pharmacy Communication SCH (17:45)
[2024-07-06] MEDS: ACETAMINOPHEN 325 MG TAB PO SCH (17:45)
[2024-07-06] MEDS: DOCUSATE SODIUM 100 MG CAP PO SCH (20:10)
[2024-07-07] MEDS: NALOXONE HCL 0.08 MG in SYRINGE 1.8 ML IV PRN (01:43)
[2024-07-07] MEDS: diphenhydrAMINE 50 MG/ML VIAL IV PRN (03:06)
[2024-07-07] MEDS ORDERED: HYDROmorphone INJ 0.5 MG/0.5 ML SYR IV PRN (04:46)
[2024-07-07] MEDS ORDERED: ONDANSETRON INJ 2 MG/ML 2 ML VIAL IV PRN (04:46)
[2024-07-07] MEDS ORDERED: diphenhydrAMINE 50 MG/ML VIAL IV PRN (04:46)
[2024-07-07] MEDS ORDERED: diphenhydrAMINE Capsule 25 MG CAP PO PRN (04:46)
[2024-07-07] MEDS ORDERED: PROMETHAZINE 12.5 MG/50.5 ML BAG IV PRN (04:46)
[2024-07-07] MEDS ORDERED: ACETAMINOPHEN 500 MG TAB PO SCH (06:00)
[2024-07-07 06:37] LABS: Basophils # (auto) 0.04 K/uL (0.00-0.20); Basophils % (auto) 0.2 %; Eosinophils # (auto) 0.02 K/uL (0.00-0.50); Eosinophils % (auto) 0.1 %; Hematocrit (blood only) 31.4 % (37.0-47.0); Hemoglobin 10.3 g/dl (12.0-16.0); Immature Granulocytes # (auto) 0.28 K/uL (0.01-0.20); Immature Granulocytes % (auto) 1.2 %; Lymphocytes % (auto) 12.8 %; Mean Corpuscular Hemoglobin 29.8 pg (25.0-34.0); Mean Corpuscular Hgb Conc 32.8 g/dL (32.0-36.0); Mean Corpuscular Volume 90.8 fL (80.0-100.0); Mean Platelet Volume 10.4 fL (9.4-12.4); Monocytes # (auto) 1.42 K/uL (0.11-0.59); Neutrophils # (auto) 18.74 K/uL (1.40-6.50); Neutrophils % (auto) 79.7 %; Platelet Count 233 K/uL (130-400); Red Blood Count 3.46 M/uL (4.20-5.40)
--- NOTE | 2024-07-07 08:24 | Obstetrical Progress Note ---
Date of Service July 07, 2024 Assessment & Plan (1) Pre-eclampsia: POD#1 from 1'CS for failure to progress, with bilateral deep cervical extensions repaired. EBL just under 1L intraop and Hgb 10.3 this morning, not tachycardic. Already voided. Today normal diet, ambulate, shower, etc. and needs support with latch, can work with nursing today. Subjective Ambulation: ambulating normally Voiding: no voiding problems Passing Gas:: Yes Diet Tolerance:: regular diet Lochia:: Small Feeding Type:: breast feeding Physical Exam Constitutional WD/WN, vitals as above Eyes PERRL, conjunctivae normal, anicteric sclerae Neck normal visual inspection Respiratory normal respiratory effort and able to speak in complete sentences; no respiratory distress and no labored breathing Cardiovascular Rate/Rhythm: regular rate and regular rhythm Extremities: no edema Chest (Breasts) Chest: normal inspection of chest Gastrointestinal (Abdomen) Inspection/Auscultation: abdomen normal to inspection Soft, postgravid Incision c/d/i with NERI in place, small shadowing marked and none beyond brownlee. Psychiatric A+Ox3, euthymic affect Genitourinary OB Exam Abdomen: + fundal height Fundus: + firm and + relation to umbilicus (fundus just below umbilicus); not tender Results & Data Vital Signs (Past 12 Hours) Vital Signs Temp Pulse Resp BP Pulse Ox O2 Del Method 07/07/24 03:02 97.5 F L 73 18 114/80 07/07/24 01:15 18 97 07/07/24 00:10 20 97 07/06/24 23:29 97.9 F 73 18 112/74 99 Room Air 07/06/24 23:15 20 98 07/06/24 22:15 18 99 07/06/24 21:05 20 98
[2024-07-07] MEDS: FERROUS SULFATE 325 MG TAB PO SCH (08:33)
[2024-07-07] MEDS: PRENATAL VITAMIN 1 TAB PO SCH (08:33)
[2024-07-07] MEDS: CETIRIZINE HCL 10 MG TABLET PO SCH (08:43)
[2024-07-07] MEDS ORDERED: IBUPROFEN 600 MG TAB PO SCH ×2 (09:00→11:15)
[2024-07-07] MEDS ORDERED: KETOROLAC 30 MG/ML VIAL IV PRN (11:02)
[2024-07-07] MEDS: IBUPROFEN 600 MG TAB PO SCH (15:01)
[2024-07-07] MEDS: oxyCODONE HCL IR 5 MG TAB (IMMEDIATE RELEASE) PO PRN (15:53)
[2024-07-07] MEDS: bisacodyL 5 MG TABEC PO SCH (20:17)
[2024-07-07 23:30] VITALS: TEMP 98.2
[2024-07-08 06:30] LABS: Hematocrit (blood only) 26.8 % (37.0-47.0); Hemoglobin 8.9 g/dl (12.0-16.0)
--- NOTE | 2024-07-08 07:24 | Obstetrical Progress Note ---
Date of Service July 08, 2024 Assessment & Plan (1) delivery delivered: Plan 33years delivered by [facility] at 37+4week POG. #2 POD following Section Both mom and baby doing well. Feel ready to go home today.Discharge today as per protocol. Follow up after 6 weeks for visit Admission and Anticipated Discharge Date Admission Date: July 05, 2024 Supervising Physician Co-Signing Physician Notes Resident Physician Supervision Note: I interviewed and examined the patient. Discussed with Dr. Blanco and agree with findings and plan as documented in the note. Any exceptions or clarifications are listed here: [ ] Documented By: Meg Cantu MD, FACOG Subjective years P at ... week POG. ...POD following delivery No active complains Both mom and baby doing well. Mom Lying comfortable on bed. Pain: Mild, intermittent, manageable on painkillers. Lochia: Moderate Diet: Regular OB diet Bowel Movement: Not had her bowel Movement yet Gas: Aware of passing, no abdominal distension Peeing: Passed Urine after joe's removal; no burning or discomfort on peeing Ambulation: to Bathroom/ Corridor without any complication Answered her queries. Review of Systems Review of Systems: As per HPI Physical Exam Physical Exam: General: Alert and oriented. No acute distress. CVS: S1 S2+ No murmurs, regular rhythm. Respiratory: CTA bilaterally. No rhonchi, wheezes, or crackles. No increased work of breathing. Abdomen: Bowel sound +. Soft, nontender Uterus: Fundus firm and palpable few cm below the umbilicus. Incision site looks healthy: Dry, No swelling, Erythema Lower extremities: No LE edema. No deep calf pain. Results & Data Vital Signs (Past 12 Hours) Vital Signs Temp Pulse Resp BP Pulse Ox O2 Del Method 07/07/24 23:29 36.8 C 76 18 98/67 L Room Air 07/07/24 20:15 36.4 C L 80 16 113/75 100 Room Air Resident Activity Tracking Resident Involvement: Resident Care Provided Care Provided: OB Delivery
[2024-07-08 10:35] VITALS: BP 121/81; PULSE 75; RESP 16; O2SAT 98
[2024-07-08] MEDS ORDERED: bisacodyL 10 MG SUPP PR PRN (11:02)
[2024-07-08] MEDS ORDERED: IBUPROFEN 600 MG TAB PO PRN (11:02)
[2024-07-08] MEDS ORDERED: ACETAMINOPHEN 325 MG TAB PO PRN (17:02)
--- NOTE | 2024-07-10 09:47 | Discharge Summary ---
Date of Service July 10, 2024 Admission HPI Per Admitting Provider Patient is a 33 yo female currently at 37+3WGA with an TACO 07/24/2024 as determined by LMP who is here for induction of labor. Her was complicated by Obesity and Hypertension Not felt contractions ; movement present; no fluid loss; had bloody show External FHT and external uterine monitors used; category I tracing; normal FHT variability Had regular appointments with OB. Discharge Data Consultations 07/05/24 08:53 Consult Anesthesiology Stat 07/06/24 09:29 Consult Anesthesiology Stat Procedures Performed Operation Date: 07/06/24 09:35 Actual Procedures p Section in LD LM @ 1013 - Meg Cantu MD Hospital Course (1) delivery delivered: Plan 33years delivered by [facility] at 37+4week POG. #2 POD following Section Both mom and baby doing well. Feel ready to go home today.Discharge today as per protocol. Follow up after 6 weeks for visit Coding Level of Care Code None Diagnoses delivery delivered O82
== END 2024-07-08 15:00 | disposition home or self-care (01) | DRG 788 ==
LOC: 4S1 07:43 → 4E2 07-06 14:15

== ENCOUNTER 2024-07-11 23:35 | Inpatient (IN) ==
[2024-07-12 00:16] LABS: iSTAT Creatinine 0.7 mg/dl (0.6-1.3); iSTAT Hemoglobin 9.5 g/dl (12.0-16.0); iSTAT Ionized Calcium 1.15 mmol/l (1.12-1.32); iSTAT Potassium 3.6 mmol/L (3.3-5.0)
[2024-07-12] MEDS: OPTIRAY 320 125ml IV ONE (00:21)
[2024-07-12] MEDS: LABETALOL HCL IV 5 MG/ML 20ML IV STA (00:23)
[2024-07-12] MEDS: SODIUM CHLORIDE 0.9% 1,000 ML IV ONE (00:23)
[2024-07-12 00:24] LABS: Basophils # (auto) 0.01 K/uL (0.00-0.20); Basophils % (auto) 0.1 %; Eosinophils # (auto) 0.05 K/uL (0.00-0.50); Eosinophils % (auto) 0.3 %; Hematocrit (blood only) 29.8 % (37.0-47.0); Hemoglobin 10.1 g/dl (12.0-16.0); Immature Granulocytes # (auto) 0.15 K/uL (0.01-0.20); Lymphocytes # (auto) 1.55 K/uL (1.20-3.40); Lymphocytes % (auto) 10.5 %; Mean Corpuscular Hemoglobin 30.4 pg (25.0-34.0); Mean Corpuscular Hgb Conc 33.9 g/dL (32.0-36.0); Mean Corpuscular Volume 89.8 fL (80.0-100.0); Mean Platelet Volume 9.5 fL (9.4-12.4); Monocytes # (auto) 0.73 K/uL (0.11-0.59); Monocytes % (auto) 4.9 %; Neutrophils # (auto) 12.32 K/uL (1.40-6.50); Neutrophils % (auto) 83.2 %; Platelet Count 324 K/uL (130-400); RDW Coefficient of Variation 13.3 % (11.5-14.5); RDW Standard Deviation 43.7 fL (36.4-46.3); Red Blood Count 3.32 M/uL (4.20-5.40); White Blood Count 14.81 K/ul (4.8-10.8)
[2024-07-12 00:24] LABS: Appearance Urine Clear (Clear); Bacteria Urine Automated None Seen (None Seen); Bilirubin Urine Negative (Negative); Blood Urine 2+ (Negative); Cast Urine Automated 0-2 /lpf (0-2); Color Urine Yellow; Epithelial Cell Urine Auto 0-2 /hpf (0-2); Glucose Urine UA Negative (Negative); Ketones Urine Negative (Negative); Leukocyte Esterase Urine 1+ (Negative); Nitrite Urine Negative (Negative); Protein Urine Negative (Negative); Specific Gravity Urine 1.009 (1.000-1.030); Urobilinogen Urine Negative (Negative); pH Urine 6.5 (4.5-7.5)
[2024-07-12 00:38] LABS: Albumin Level 3.2 gm/dl (3.4-5.0); Bilirubin Direct 0.1 mg/dl (0-0.2); Bilirubin,Total 0.4 mg/dl (0.2-1.0); Calcium 8.3 mg/dl (8.6-10.3); Creatinine Clr Calc Pharmacy 153.6 ml/min; Potassium 3.7 mmol/L (3.5-5.1); Total Protein 6.2 gm/dl (6.0-8.3)
[2024-07-12 00:45] LABS: Troponin I High Sensitivity 10.2 pg/ml (0-14)
[2024-07-12 01:05] LABS: INR 0.9 (0.9-1.1); Partial Thromboplastin Time 27 Seconds (21-31)
[2024-07-12 01:07] LABS: Total Protein Urine Random 9.6 mg/dl (0-11.9)
[2024-07-12 01:12] LABS: Adenovirus PCR Not Detected (NotDetected); Bordetella parapertussis PCR Not Detected (NotDetected); Bordetella pertussis PCR Not Detected (NotDetected); Chlamydia pneumoniae PCR Not Detected (NotDetected); Coronavirus 229E PCR Not Detected (NotDetected); Coronavirus CoV-2 (COVID19)PCR Not Detected (NotDetected); Coronavirus HKU1 PCR Not Detected (NotDetected); Coronavirus NL63 PCR Not Detected (NotDetected); Coronavirus OC43PCR Not Detected (NotDetected); Human Metapneumovirus PCR Not Detected (NotDetected); Influenza A PCR Not Detected (NotDetected); Influenza B PCR Not Detected (NotDetected); Mycoplasma pneumoniae PCR Not Detected (NotDetected); Parainfluenza Virus 1 PCR Not Detected (NotDetected); Parainfluenza Virus 2 PCR Not Detected (NotDetected); Parainfluenza Virus 3 PCR DETECTED (NotDetected); Parainfluenza Virus 4 PCR Not Detected (NotDetected); Respiratory Syncytial VirusPCR Not Detected (NotDetected); Rhinovirus/Enterovirus PCR Not Detected (NotDetected)
[2024-07-12 01:12] LABS: Creatinine Urine Random 32.6 mg/dl; Protein Creatinine Ratio Urine 0.3 (0-0.2)
--- NOTE | 2024-07-12 01:20 | XRay Report ---
EXAM: XR chest 1V portable CLINICAL HISTORY: Sepsis TECHNIQUE: An X-ray image of the chest is obtained in AP projection. COMPARISON: No prior studies are available for comparison. FINDINGS: Pulmonary Parenchyma: Bilateral hilar congestion noted. Prominent bronchovascular and interstitial markings noted in bilateral lung [place]. Haziness noted in right lower zone obscuring right hemidiaphragm, could be due to parenchymal opacities and pleural effusion. Heart and Mediastinum: Cardiomegaly. No mediastinal widening or masses. No hilar or mediastinal lymphadenopathy. Bony Thorax: Bony thorax appears intact without fractures or deformities. Soft Tissues: Soft tissues overlying the chest wall are unremarkable. IMPRESSION: 1. Bilateral hilar congestion noted. 2. Prominent bronchovascular and interstitial markings noted in bilateral lung [place]. 3. Haziness noted in right lower zone, obscuring the right hemidiaphragm?could be due to parenchymal opacities and pleural effusion, infective. 4. Cardiomegaly. Electronically signed by Matheus Dawson 07-12-2024 01:19 AM
[2024-07-12] MEDS: PIPERACILLIN/TAZOBACTAM 4.5 GM/100 ML BAG IV ONE (01:39)
--- NOTE | 2024-07-12 01:39 | CT Scan Report ---
EXAM: CT angio chest PE protocol CLINICAL HISTORY: PE, recent delivery, HTN, fever TECHNIQUE: Contiguous axial images were obtained from the neck base through the upper abdomen following intravenous administration of iodinated contrast material. Angiographic images were processed, 3D MIP images were acquired for interpretation. If IV contrast material had not been administered, the likelihood of detecting abnormalities relevant to the patient's condition would have been substantially decreased. Coronal and sagittal 3-D MIPs were likewise performed and indicated to increase the sensitivity of detectin diffuse clinically relevant pathology. CT scan was performed according to ALARA (as low as reasonable achievable). COMPARISON: . None. FINDINGS: Adequate contrast bolus without evidence of pulmonary embolism. The central airways are patent. The lungs are otherwise clear. Right mild pleural effusion with segmental collapse-consolidation of right lower lobe The heart, aorta, and pulmonary arteries are of nor mal size and configuration. There are no appreciable coronary artery and aortic atherosclerotic calcifications. No pericardial effusion is identified. The thyroid is mildly bulky. No mediastinal, hilar, or axillary lymphadenopathy is noted. No suspicious lytic or sclerotic osseous lesions are identified. IMPRESSION: 1 Right mild pleural effusion with segmental collapse-consolidation of right lower lobe: Could represent bacterial infection 2 Suboptimal scan due to early acquisition of CT angio as contrast is noted in SVC with streak artefact 3 No obvious evidence of pulmonary embolism Electronically signed by Vignesh Christie 07-12-2024 01:37 AM
--- NOTE | 2024-07-12 01:50 | Emergency Department Note ---
History of Present Illness General Chief complaint: Flu Like Symptoms Stated complaint: FLU LIKE SYMP,OB TOLD TO COME IN,BABY ON MONDAY Time Seen by Provider: 07/11/24 23:50 History of Present Illness Maximum Pain Intensity: 5 This 33-year-old female had a complicated by bilateral cervical extensions of hysterotomy on Monday presents to the ER for fever, chills, cough, chest pain, dyspnea for the past day. Tmax 101.4. Patient states that chest pain and shortness of breath is worse with laying down and better with sitting up. She states she is healthy otherwise and has no active medical problems before the . Patient's been taken Tylenol and Motrin for the pain. She took 2 Robitussin's earlier today. She took a Zyrtec in the morning. Patient denies vomiting, diarrhea, heavy vaginal bleeding, flank pain. No one else in the family is sick. Home Medications Medication Instructions Recorded Confirmed Type docosahexaenoic acid 200 mg 1 mg PO DAILY 03/08/24 07/12/24 History capsule ( DHA) cetirizine 10 mg tablet (Zyrtec) 10 mg PO DAILY 07/05/24 07/12/24 History oxycodone 5 mg tablet 5 mg PO Q8H PRN pain #10 tabs 07/08/24 07/12/24 Rx Allergies Allergy/AdvReac Type Severity Reaction Status Date / Time Beef Containing Products Allergy Gastrointestinal Verified 07/05/24 09:29 Upset dextromethorphan AdvReac Intermediate Gastrointestinal Verified 07/05/24 08:15 [From NyQuil] Upset doxylamine [From NyQuil] AdvReac Intermediate Gastrointestinal Verified 07/05/24 08:15 Upset pseudoephedrine [From NyQuil] AdvReac Intermediate Gastrointestinal Verified 07/05/24 08:15 Upset Past Med/Surg History Problem List (Updated 07/12/24 @ 03:05 by Meg Cantu MD) Parainfluenza Pneumonia Peripartum cardiomyopathy, delivery delivered Pre-eclampsia Dx at 35 weeks. Encounter for induction of labor Hypertension affecting in third trimester Obesity affecting , antepartum Pyelectasis of fetus on ultrasound Back pain affecting Encounter for anatomic survey Supervision of normal first Medical History Encounter for pre-operative examination Migraine Varicella vaccination No pertinent family history Irritable bowel syndrome (IBS) Ovarian cyst Surgical History S/P cubital tunnel release Family History Grandfather (Maternal) Colorectal cancer Father Hypertension Grandmother (Paternal) Heart disease Grandfather (Paternal) Stroke Grandmother (Maternal) Stroke Denies family history of Ovarian cancer Breast cancer Social History Smoking Status: Never smoker Do You Dip or Chew Tobacco: No; Hx Alcohol Use: No Hx Substance Use: No Preferred Language: Sammarinese Visual Impairment: No Limitations Internal Medicine Physician Assistant Required: No Beliefs That Will Affect Care: None marital status: marital status details: Kiko Rodriguez Current Living Situation: Spouse and Family Current Living Situation Comment: lives with spouse, step son, cats-spouse changing litter current occupational status: employed 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 Feels Safe at Home: Yes Assistive Devices: None Review of Systems A total of 10 systems reviewed and were otherwise negative Physical Exam Vital Signs Vital Signs - 24 hr 07/11/24 23:39 07/11/24 23:58 07/12/24 00:05 Temperature 37.1 C Temperature Source Oral Pulse Rate 79 87 Pulse Rate [Apical] 84 Pulse Rate from SpO2 Sensor Respiratory Rate 18 17 Respiratory Effort / Characteristics Non-Labored Spontaneous Non-Labored Spontaneous Respiratory Depth Normal Normal Respiratory Pattern Regular Regular Blood Pressure 184/87 H Blood Pressure [Left Arm] 197/107 H Blood Pressure Mean 119 Blood Pressure Mean [Left Arm] 137 Blood Pressure Position Sitting Pulse Oximetry 95 94 Oxygen Delivery Method Room Air Room Air Sepsis Recent Fever Within 48 Hours Yes Sepsis New/Unexplained Change in Mental Status N/A Sepsis Action Taken by Nursing No Action Required 07/12/24 00:23 07/12/24 00:27 07/12/24 00:33 Temperature Temperature Source Pulse Rate 85 Pulse Rate [Apical] 82 82 Pulse Rate from SpO2 Sensor Respiratory Rate 22 22 Respiratory Effort / Characteristics Non-Labored Spontaneous Non-Labored Spontaneous Respiratory Depth Normal Normal Respiratory Pattern Regular Regular Blood Pressure 180/101 H Blood Pressure [Left Arm] 180/101 H 165/93 H Blood Pressure Mean Blood Pressure Mean [Left Arm] 127 117 Blood Pressure Position Pulse Oximetry 93 93 Oxygen Delivery Method Room Air Room Air Sepsis Recent Fever Within 48 Hours Sepsis New/Unexplained Change in Mental Status Sepsis Action Taken by Nursing 07/12/24 00:45 07/12/24 01:43 07/12/24 01:45 Temperature Temperature Source Pulse Rate Pulse Rate [Apical] 80 85 Pulse Rate from SpO2 Sensor Respiratory Rate 20 20 Respiratory Effort / Characteristics Non-Labored Spontaneous Respiratory Depth Normal Normal Respiratory Pattern Regular Blood Pressure 146/98 H Blood Pressure [Left Arm] 154/90 H 147/85 H Blood Pressure Mean 118 Blood Pressure Mean [Left Arm] 111 105 Blood Pressure Position Pulse Oximetry 94 95 Oxygen Delivery Method Room Air Room Air Sepsis Recent Fever Within 48 Hours Sepsis New/Unexplained Change in Mental Status Sepsis Action Taken by Nursing 07/12/24 01:50 07/12/24 02:00 07/12/24 02:00 Temperature Temperature Source Pulse Rate 87 Pulse Rate [Apical] Pulse Rate from SpO2 Sensor Respiratory Rate Respiratory Effort / Characteristics Respiratory Depth Respiratory Pattern Blood Pressure 146/98 H 155/90 H 155/90 H Blood Pressure [Left Arm] Blood Pressure Mean 114 114 Blood Pressure Mean [Left Arm] Blood Pressure Position Pulse Oximetry Oxygen Delivery Method Sepsis Recent Fever Within 48 Hours Sepsis New/Unexplained Change in Mental Status Sepsis Action Taken by Nursing 07/12/24 02:15 07/12/24 02:30 07/12/24 02:42 Temperature Temperature Source Pulse Rate 88 Pulse Rate [Apical] Pulse Rate from SpO2 Sensor 88 Respiratory Rate 22 Respiratory Effort / Characteristics Respiratory Depth Respiratory Pattern Blood Pressure 151/80 H 138/87 Blood Pressure [Left Arm] Blood Pressure Mean 104 95 Blood Pressure Mean [Left Arm] Blood Pressure Position Pulse Oximetry 95 Oxygen Delivery Method Sepsis Recent Fever Within 48 Hours Sepsis New/Unexplained Change in Mental Status Sepsis Action Taken by Nursing 07/12/24 02:45 07/12/24 03:00 Temperature Temperature Source Pulse Rate Pulse Rate [Apical] Pulse Rate from SpO2 Sensor Respiratory Rate Respiratory Effort / Characteristics Respiratory Depth Respiratory Pattern Blood Pressure 153/81 H 117/74 Blood Pressure [Left Arm] Blood Pressure Mean 110 100 Blood Pressure Mean [Left Arm] Blood Pressure Position Pulse Oximetry Oxygen Delivery Method Sepsis Recent Fever Within 48 Hours Sepsis New/Unexplained Change in Mental Status Sepsis Action Taken by Nursing VITALS: Vitals are noted on the nurse's note and reviewed by myself. Vital signs reviewed, hypertensive. GENERAL: Pleasant female with mom present, in no acute distress, nondiaphoretic, well-developed well-nourished. SKIN: The skin was without rashes, erythema, edema, or bruising. There is no tenting of the skin. Capillary reflex less than 2 seconds. HEAD: Normocephalic atraumatic. EARS: External auditory canals clear EYES: Pupils equal round and reactive to light and accommodation. Conjunctivae without injection, sclerae without icterus. Extraocular movements intact. NOSE: Patent, no discharge. MOUTH: Mucous membranes moist. Pharynx without erythema or exudate. Uvula midline. Airway patent. Tongue does not deviate. NECK: Supple without nuchal rigidity. No lymphadenopathy. No thyromegaly. Cervical spine is nontender. No JVD. HEART: Regular rate and rhythm LUNGS: Diminished breath sounds in the bases. No retractions or accessory muscle use. ABDOMEN: Positive bowel sounds x 4. Normal tympanic percussion. Soft, nontender, without masses or organomegaly. Lynne sign negative. No guarding or rebound tenderness. No CVA tenderness MUSCULOSKELETAL: No muscle atrophy, erythema, or edema noted. NEURO: Patient was alert and oriented to person place and time. Normal sensation to light and sharp touch. No focal neurological deficits. Course Administered Medications Discontinued Medications Sodium Chloride (Nss) 1,000 mls @ 999 mls/hr IV .Q1H1M ONE Stop: 07/12/24 01:00 Last Infusion: 07/12/24 01:50 Dose: Infused Documented By: assistance representative: 07/12/24 00:23 Dose: 999 mls/hr Documented By: MED Piperacillin Sod/Tazobactam Sod (Zosyn) 4.5 gm in 100 mls @ 200 mls/hr IV NOW ONE; Protocol Stop: 07/12/24 01:43 Last Infusion: 07/12/24 02:19 Dose: Infused Documented By: assistance representative: 07/12/24 01:39 Dose: 200 mls/hr Documented By: MED Acetaminophen (Ofirmev) 1,000 mg in 100 mls @ 400 mls/hr IV NOW STA Stop: 07/12/24 02:43 Last Admin: 07/12/24 02:42 Dose: 400 mls/hr Documented By: JORGE Ioversol (Optiray 320 125ml) 119 ml IV ONCE ONE Stop: 07/12/24 00:22 Last Admin: 07/12/24 00:21 Dose: 119 ml Documented By: KENYATTA Labetalol HCl (Labetalol Hcl Iv 5 Mg/Ml 20ml) 20 mg IV ONCE STA Stop: 07/12/24 00:07 Last Admin: 07/12/24 00:23 Dose: 20 mg Documented By: JORGE Critical Care Time Critical Care Time: Yes Total Critical Care Time: 80 I have personally spent 80 minutes of critical care time in the direct management of this patient. This includes bedside care, interpretation of diagnostic studies, and testing, discussion with consultants, patient, and family members, and other required patient management activities. This 80 minutes is in excess of all separately billable procedures. Medical Decision Making Medical Records Attestation: I reviewed the patient's medical records. Home Medications Current Medication List: was personally reviewed by me Laboratory Data Attestation: I reviewed the patient's lab results. 07/11/24 23:58 07/11/24 23:58 Lab Results 07/11/24 07/11/24 07/12/24 Range/Units 23:54 23:58 00:00 WBC 14.81 H (4.8-10.8) K/ul RBC 3.32 L (4.20-5.40) M/uL Hgb 10.1 L (12.0-16.0) g/dl POC Hgb (12.0-16.0) g/dl Hct 29.8 L (37.0-47.0) % POC Hct (37-47) % MCV 89.8 (80.0-100.0) fL MCH 30.4 (25.0-34.0) pg MCHC 33.9 (32.0-36.0) g/dL RDW Std Deviation 43.7 (36.4-46.3) fL RDW Coeff of Mary 13.3 (11.5-14.5) % Plt Count 324 (130-400) K/uL MPV 9.5 (9.4-12.4) fL Immature Gran % (Auto) 1.0 % Neut % (Auto) 83.2 % Lymph % (Auto) 10.5 % Anderson % (Auto) 4.9 % Eos % (Auto) 0.3 % Baso % (Auto) 0.1 % Neut # (Auto) 12.32 H (1.40-6.50) K/uL Lymph # (Auto) 1.55 (1.20-3.40) K/uL Anderson # (Auto) 0.73 H (0.11-0.59) K/uL Eos # (Auto) 0.05 (0.00-0.50) K/uL Baso # (Auto) 0.01 (0.00-0.20) K/uL Immature Gran # (Auto) 0.15 (0.01-0.20) K/uL PT 10.0 (9.0-12.0) Seconds INR 0.9 (0.9-1.1) APTT 27 (21-31) Seconds PTT Ratio 1.0 POC Sodium (135-144) mmol/L Sodium 140 (136-145) mmol/L POC Potassium (3.3-5.0) mmol/L Potassium 3.7 (3.5-5.1) mmol/L POC Chloride (101-112) mmol/L Chloride 108 H (98-107) mmol/L Carbon Dioxide 24 (21-32) mmol/L POC Total CO2 (24-31) mmol/L Anion Gap 8 (3-11) POC Anion Gap (16-25) mmol/L POC BUN (7-18) mg/dl BUN 11 (6-23) mg/dl Creatinine 0.61 (0.6-1.2) mg/dl POC Creatinine (0.6-1.3) mg/dl Est Cr Clr Drug Dosing 153.6 ml/min eGFR 120.99 BUN/Creatinine Ratio 18.0 (10-20) Glucose 102 H (70-99(Fasting)) mg/dl POC Glucose (other) (70-99) mg/dl Lactate 0.4 (0.4-2.0) mmol/L Calcium 8.3 L (8.6-10.3) mg/dl POC Ioniz Calcium Leydi (1.12-1.32) mmol/l Magnesium 2.0 (1.7-2.4) mg/dl Total Bilirubin 0.4 (0.2-1.0) mg/dl Direct Bilirubin 0.1 (0-0.2) mg/dl AST 17 (13-39) U/L ALT 13 (7-52) U/L Alkaline Phosphatase 95 (34-104) U/L Troponin I High Sens 10.2 (0-14) pg/ml B-Natriuretic Peptide 312 H (0-100) pg/ml Total Protein 6.2 (6.0-8.3) gm/dl Albumin 3.2 L (3.4-5.0) gm/dl Procalcitonin 0.07 (0-0.5) ng/ml Urine Color Urine Appearance (Clear) Urine pH (4.5-7.5) Ur Specific [place] (1.000-1.030) Urine Protein (Negative) Urine Glucose (UA) (Negative) Urine Ketones (Negative) Urine Blood (Negative) Urine Nitrite (Negative) Urine Bilirubin (Negative) Urine Urobilinogen (Negative) Ur Leukocyte Esterase (Negative) Urine WBC (Auto) (0-5) /hpf Urine RBC (Auto) (0-2) /hpf U Hyaline Cast (Auto) (0-2) /lpf U Epithel Cells (Auto) (0-2) /hpf Urine Bacteria (Auto) (None Seen) Ur Random Creatinine mg/dl U Random Total Protein (0-11.9) mg/dl Protein/Creatinin Ratio (0-0.2) Adenovirus (PCR) Not Detected (NotDetected) B. pertussis DNA (PCR) Not Detected (NotDetected) B.parapertussis DNA PCR Not Detected (NotDetected) C. pneumoniae DNA (PCR) Not Detected (NotDetected) Coronavirus OC43 (PCR) Not Detected (NotDetected) Coronavirus HKU1 (PCR) Not Detected (NotDetected) Coronavirus 229E (PCR) Not Detected (NotDetected) SARS-CoV-2 (PCR) Not Detected (NotDetected) Coronavirus NL63 (PCR) Not Detected (NotDetected) Human Metapneumovir PCR Not Detected (NotDetected) Influenza Type A (PCR) Not Detected (NotDetected) Influenza Type B (PCR) Not Detected (NotDetected) M. pneumoniae (PCR) Not Detected (NotDetected) Parainfluenza 1 (PCR) Not Detected (NotDetected) Parainfluenza 2 (PCR) Not Detected (NotDetected) Parainfluenza 3 (PCR) DETECTED A (NotDetected) Parainfluenza 4 (PCR) Not Detected (NotDetected) RSV (PCR) Not Detected (NotDetected) Entero/Rhino (PCR) Not Detected (NotDetected) 07/12/24 Range/Units 00:04 WBC (4.8-10.8) K/ul RBC (4.20-5.40) M/uL Hgb (12.0-16.0) g/dl POC Hgb 9.5 L (12.0-16.0) g/dl Hct (37.0-47.0) % POC Hct 28 L (37-47) % MCV (80.0-100.0) fL MCH (25.0-34.0) pg MCHC (32.0-36.0) g/dL RDW Std Deviation (36.4-46.3) fL RDW Coeff of Mary (11.5-14.5) % Plt Count (130-400) K/uL MPV (9.4-12.4) fL Immature Gran % (Auto) % Neut % (Auto) % Lymph % (Auto) % Anderson % (Auto) % Eos % (Auto) % Baso % (Auto) % Neut # (Auto) (1.40-6.50) K/uL Lymph # (Auto) (1.20-3.40) K/uL Anderson # (Auto) (0.11-0.59) K/uL Eos # (Auto) (0.00-0.50) K/uL Baso # (Auto) (0.00-0.20) K/uL Immature Gran # (Auto) (0.01-0.20) K/uL PT (9.0-12.0) Seconds INR (0.9-1.1) APTT (21-31) Seconds PTT Ratio POC Sodium 139 (135-144) mmol/L Sodium (136-145) mmol/L POC Potassium 3.6 (3.3-5.0) mmol/L Potassium (3.5-5.1) mmol/L POC Chloride 106 (101-112) mmol/L Chloride (98-107) mmol/L Carbon Dioxide (21-32) mmol/L POC Total CO2 23 L (24-31) mmol/L Anion Gap (3-11) POC Anion Gap 15.0 L (16-25) mmol/L POC BUN 9 (7-18) mg/dl BUN (6-23) mg/dl Creatinine (0.6-1.2) mg/dl POC Creatinine 0.7 (0.6-1.3) mg/dl Est Cr Clr Drug Dosing ml/min eGFR BUN/Creatinine Ratio (10-20) Glucose (70-99(Fasting)) mg/dl POC Glucose (other) 102 H (70-99) mg/dl Lactate (0.4-2.0) mmol/L Calcium (8.6-10.3) mg/dl POC Ioniz Calcium Leydi 1.15 (1.12-1.32) mmol/l Magnesium (1.7-2.4) mg/dl Total Bilirubin (0.2-1.0) mg/dl Direct Bilirubin (0-0.2) mg/dl AST (13-39) U/L ALT (7-52) U/L Alkaline Phosphatase (34-104) U/L Troponin I High Sens (0-14) pg/ml B-Natriuretic Peptide (0-100) pg/ml Total Protein (6.0-8.3) gm/dl Albumin (3.4-5.0) gm/dl Procalcitonin (0-0.5) ng/ml Urine Color Yellow Urine Appearance Clear (Clear) Urine pH 6.5 (4.5-7.5) Ur Specific [place] 1.009 (1.000-1.030) Urine Protein Negative (Negative) Urine Glucose (UA) Negative (Negative) Urine Ketones Negative (Negative) Urine Blood 2+ H (Negative) Urine Nitrite Negative (Negative) Urine Bilirubin Negative (Negative) Urine Urobilinogen Negative (Negative) Ur Leukocyte Esterase 1+ H (Negative) Urine WBC (Auto) 6-10 H (0-5) /hpf Urine RBC (Auto) 3-5 H (0-2) /hpf U Hyaline Cast (Auto) 0-2 (0-2) /lpf U Epithel Cells (Auto) 0-2 (0-2) /hpf Urine Bacteria (Auto) None Seen (None Seen) Ur Random Creatinine 32.6 mg/dl U Random Total Protein 9.6 (0-11.9) mg/dl Protein/Creatinin Ratio 0.3 H (0-0.2) Adenovirus (PCR) (NotDetected) B. pertussis DNA (PCR) (NotDetected) B.parapertussis DNA PCR (NotDetected) C. pneumoniae DNA (PCR) (NotDetected) Coronavirus OC43 (PCR) (NotDetected) Coronavirus HKU1 (PCR) (NotDetected) Coronavirus 229E (PCR) (NotDetected) SARS-CoV-2 (PCR) (NotDetected) Coronavirus NL63 (PCR) (NotDetected) Human Metapneumovir PCR (NotDetected) Influenza Type A (PCR) (NotDetected) Influenza Type B (PCR) (NotDetected) M. pneumoniae (PCR) (NotDetected) Parainfluenza 1 (PCR) (NotDetected) Parainfluenza 2 (PCR) (NotDetected) Parainfluenza 3 (PCR) (NotDetected) Parainfluenza 4 (PCR) (NotDetected) RSV (PCR) (NotDetected) Entero/Rhino (PCR) (NotDetected) Imaging Data Attestation: I personally reviewed and interpreted this imaging study as follows: Radiologist's Impression: Chest X-Ray 07/11/24 23:58 EXAM: XR chest 1V portable CLINICAL HISTORY: Sepsis TECHNIQUE: An X-ray image of the chest is obtained in AP projection. COMPARISON: No prior studies are available for comparison. FINDINGS: Pulmonary Parenchyma: Bilateral hilar congestion noted. Prominent bronchovascular and interstitial markings noted in bilateral lung [place]. Haziness noted in right lower zone obscuring right hemidiaphragm, could be due to parenchymal opacities and pleural effusion. Heart and Mediastinum: Cardiomegaly. No mediastinal widening or masses. No hilar or mediastinal lymphadenopathy. Bony Thorax: Bony thorax appears intact without fractures or deformities. Soft Tissues: Soft tissues overlying the chest wall are unremarkable. IMPRESSION: 1. Bilateral hilar congestion noted. 2. Prominent bronchovascular and interstitial markings noted in bilateral lung [place]. 3. Haziness noted in right lower zone, obscuring the right hemidiaphragm?could be due to parenchymal opacities and pleural effusion, infective. 4. Cardiomegaly. Electronically signed by Matheus Dawson 07-12-2024 01:19 AM Abdomen/Pelvis CT 07/12/24 00:05 EXAM: CT abd pelvis IV con only CLINICAL HISTORY: abd pain, fever, 5 days ago TECHNIQUE: Multiple contiguous axial images were obtained from the level of diaphragm to the pubis symphysis. This study was acquired after the IV administration of iodinated contrast material, given the patients indications for the examination. If IV contrast material had not been administered, the likelihood of detecting abnormalities relevant to the patients condition would have been substantially decreased. Coronal and sagittal reformatted images were generated and reviewed to improve anatomic localization and optimize lesion detection. CT scan was performed according to ALARA (as low as reasonable achievable). COMPARISON: . None FINDINGS: The visualized lung bases show right mild pleural effusion with subsegmental collapse consolidation in right lower lobe. ABDOMEN/PELVIS: The liver is enlarged in size ~ 22 cm with normal attenuation. No focal liver lesions are seen. There is no intra or extrahepatic biliary ductal dilatation. Hepatic vasculature is patent. The gallbladder is unremarkable. The spleen, pancreas, and adrenal glands are unremarkable. The kidneys are normal in size and attenuation. There is no hydronephrosis or perinephric fat stranding. No renal calculi or renal masses are identified. The ureters are normal in caliber and no ureteral calculi are seen. The bladder is normal in contour. No evidence of focal or diffuse bowel wall thickening or evidence of bowel obstruction is seen. No inflamed appendix is visualized in the right lower quadrant. No adenopathy or fluid collections are seen. The aorta is normal in caliber. No aggressive appearing osseous lesions are identified. Post operative changes noted in the form of stranding along the scar site in the anterior abdominal wall. Uterus is diffusely bulky due to recent post status. No obvious drainable collection noted or ascites.. IMPRESSION: 1 Post operative changes noted in the form of stranding along the scar site in the anterior abdominal wall. 2 Uterus is diffusely bulky due to recent post status. 3 No obvious drainable collection noted or ascites. 4 Marked hepatomegaly 5 Right mild pleural effusion with subsegmental collapse consolidation in right lower lobe. Electronically signed by Vignesh Christie 07-12-2024 01:48 AM Chest CTA 07/12/24 00:05 EXAM: CT angio chest PE protocol CLINICAL HISTORY: PE, recent delivery, HTN, fever TECHNIQUE: Contiguous axial images were obtained from the neck base through the upper abdomen following intravenous administration of iodinated contrast material. Angiographic images were processed, 3D MIP images were acquired for interpretation. If IV contrast material had not been administered, the likelihood of detecting abnormalities relevant to the patient's condition would have been substantially decreased. Coronal and sagittal 3-D MIPs were likewise performed and indicated to increase the sensitivity of detectin diffuse clinically relevant pathology. CT scan was performed according to ALARA (as low as reasonable achievable). COMPARISON: . None. FINDINGS: Adequate contrast bolus without evidence of pulmonary embolism. The central airways are patent. The lungs are otherwise clear. Right mild pleural effusion with segmental collapse-consolidation of right lower lobe The heart, aorta, and pulmonary arteries are of nor mal size and configuration. There are no appreciable coronary artery and aortic atherosclerotic calcifications. No pericardial effusion is identified. The thyroid is mildly bulky. No mediastinal, hilar, or axillary lymphadenopathy is noted. No suspicious lytic or sclerotic osseous lesions are identified. IMPRESSION: 1 Right mild pleural effusion with segmental collapse-consolidation of right lower lobe: Could represent bacterial infection 2 Suboptimal scan due to early acquisition of CT angio as contrast is noted in SVC with streak artefact 3 No obvious evidence of pulmonary embolism Electronically signed by Vignesh Christie 07-12-2024 01:37 AM MDM Narrative Prior records/ancillary studies reviewed and summarized above. Nursing notes reviewed. Additional history obtained from family. The patient's history was concerning for fever, difficulty breathing, chest pain, 5 days . Differential diagnosis: Etiologies such as complication, preeclampsia, sepsis, cardiomyopathy, cardiac, metabolic, infection, hypo/hyperglycemia, electrolyte abnormalities, cardiac sources, intracerebral event, toxicologic, neurologic, as well as others were entertained. Physical examination: As above. ER treatment provided: IV Lock An order was placed for continuous cardiac monitoring. The monitor shows a rate of 60-100 with a sinus rhythm per my interpretation. Labetalol, Zosyn, vancomycin, Zithromax I immediately contacted OB upon initial evaluation of this patient. On reassessment the patient felt better. Diagnostics interpretation by me: ECG: Ordered for chest pain EKG: Poor baseline, normal sinus, normal intervals, no acute ST-T wave changes. Impression normal sinus rhythm independently interpreted myself The labs Independently Interpreted by myself revealed improving anemia per chart review, pending blood cultures Negative lactic Leukocytosis Positive parainfluenza 3 on [employer] Negative troponin. Elevated BNP Imaging studies: Imaging was reviewed and read by radiology Consultation: A consultation was placed with the hospitalist. The case was discussed and diagnostics were reviewed. The patient was evaluated in the ER for further treatment. Consultation was placed with CURRICULUM SUPERVISOR and the case discussed. She recommends medical admission and she will be consulted on the case. She is worried about cardiomyopathy and pneumonia. Exam and history seem consistent with pneumonia with parainfluenza with concerns for cardiomyopathy . Patient was medicated as above. Medicine and OB were consulted. Patient will admitted to the medical service. Cardiology was attempted be consulted for stat echo with no response. Patient and family agreeable treatment plan of admission. Patient was admitted to the unit. Patient was reassessed multiple times. Extensive discussions were held between CURRICULUM SUPERVISOR and medicine. Patient's blood pressure did improve. Pulse ox remained stable. By the evaluation outlined above emergent etiologies such as electrolyte abnormalities, intracerebral event, toxologic, neurologic, abnormalities blood glucose, metabolic, as well as others were deemed relatively unlikely. The pt informed about the findings as listed above. All questions were answered and pleased with the treatment. The chart was completed utilizing [employer] Speech voice recognition software. Grammatical errors, random word insertions, pronoun errors, and incomplete sentences are an occassional consequence of this system due to software limitations, ambient noise, and hardware issues. Any formal questions or concerns about the content, text, or information contained within the body of this dictation should be directly addressed to the physician human resources assistant manager for clarification. Impression & Plan Parainfluenza, Peripartum cardiomyopathy, , Pneumonia Discharge Plan Visit Data Chief Complaint: Flu Like Symptoms Stated Complaint: FLU LIKE SYMP,OB TOLD TO COME IN,BABY ON MONDAY ED Provider: [facility] Midlevel Provider: Daylin Garcia Discharge Problem: Parainfluenza, Peripartum cardiomyopathy, , Pneumonia Patient Disposition: Admitted As Inpatient Condition: Fair
[2024-07-12] MEDS: ACETAMINOPHEN 1,000 MG/100 ML VIAL IV STA (02:42)
[2024-07-12] MEDS ORDERED: ACETAMINOPHEN 1,000 MG/100 ML VIAL IV PRN (02:56)
[2024-07-12] MEDS ORDERED: ONDANSETRON INJ 2 MG/ML 2 ML VIAL IV PRN (02:56)
[2024-07-12] MEDS ORDERED: methylPREDNISolone 125 MG/2 ML VIAL IV STA (03:01)
--- NOTE | 2024-07-12 03:04 | History & Physical Report ---
Date of Service July 12, 2024 Assessment & Plan (1) Peripartum cardiomyopathy, : Plan: Suspected based on cardiomegaly, effusions, edema, elevated BNP. Echocardiogram not available at this hour without cardiology involvement, which is being sought by admitting team and appreciated. If not done overnight will be priority in AM. Appreciate medicine team admission and ICU status at this time. (2) Pneumonia: Plan: R lower lobe consolidation representing either bacterial or aspiration pneumonia. Concurrent parainfluenza virus infection may have been the inciting event or may not; hard to know. Patient was awake for her recent delivery under regional anesthesia, not intubated, but emesis during is common and aspiration cannot be r/o. (3) Parainfluenza: Plan: Present on biofire swab, not going to require specific management and will be far secondary to her comorbidities. (4) Pre-eclampsia: Plan: Mild preeclampsia diagnosis met in late , then resolved after delivery / before initial discharge home, at which point she had normal BP. Her elevated BP on admission today appears more likely to be r/t cardiomyopathy and lung process, based on reassuring PIH labs and lack of specifically relevant symptoms, but will remain alert for signs or symptoms of preeclampsia. No magnesium therapy at this time as the risks currently outweigh the benefits. History of Present Illness Primary Care Provider: NO PCP 33yo , POD 6 from 1' Section. Patient presents to ER with c/o onset of sore throat and cough approx 40 hours ago, which has steadily worsened to include fever (101.5 despite NSAIDs), CP, SOB, back and body aches, and worsening pedal edema. This evening she called with these complaints and was advised to present to ER. On arrival, patient was seen by ER staff. Hypertensive with 5-word dyspnea and SOB worsened with lying flat / improved when sitting up. Imaging and labs were ordered and I was made aware of her arrival. IV labetalol was given to control initial BP of 197/107 with good response. On my first bedside exam, pt is accompanied by her mother and lying supine with HOB elevated to 30 degrees. Complains of achy chest pain R > L, with sharper inspiratory discomfort in the low chest. She stops every 3-5 words to catch her breath. Reports terrible back pain from the shoulders to the bra level. Abdomen/incision/uterus area without pain at this point. No cough witnessed but pt reports it is intermittently present and quite painful to cough. Has not seen any improvement in her swollen feet since delivery which worries her also. Does not have headache or vision changes. Allergies Allergy/AdvReac Type Severity Reaction Status Date / Time Beef Containing Products Allergy Gastrointestinal Verified 07/05/24 09:29 Upset dextromethorphan AdvReac Intermediate Gastrointestinal Verified 07/05/24 08:15 [From NyQuil] Upset doxylamine [From NyQuil] AdvReac Intermediate Gastrointestinal Verified 07/05/24 08:15 Upset pseudoephedrine [From NyQuil] AdvReac Intermediate Gastrointestinal Verified 07/05/24 08:15 Upset Home Medications Medication Instructions Recorded Confirmed Type docosahexaenoic acid 200 mg 1 mg PO DAILY 03/08/24 07/12/24 History capsule ( DHA) cetirizine 10 mg tablet (Zyrtec) 10 mg PO DAILY 07/05/24 07/12/24 History oxycodone 5 mg tablet 5 mg PO Q8H PRN pain #10 tabs 07/08/24 07/12/24 Rx Past Med/Surg History Problem List (Updated 07/12/24 @ 03:05 by Meg Cantu MD) Parainfluenza Pneumonia Peripartum cardiomyopathy, delivery delivered Pre-eclampsia Dx at 35 weeks. Encounter for induction of labor Hypertension affecting in third trimester Obesity affecting , antepartum Pyelectasis of fetus on ultrasound Back pain affecting Encounter for anatomic survey Supervision of normal first Medical History Encounter for pre-operative examination Migraine Varicella vaccination No pertinent family history Irritable bowel syndrome (IBS) Ovarian cyst Surgical History S/P cubital tunnel release Family History Grandfather (Maternal) Colorectal cancer Father Hypertension Grandmother (Paternal) Heart disease Grandfather (Paternal) Stroke Grandmother (Maternal) Stroke Denies family history of Ovarian cancer Breast cancer Social History Smoking Status: Never smoker Do You Dip or Chew Tobacco: No; Hx Alcohol Use: No Hx Substance Use: No Preferred Language: [place] Citizen Visual Impairment: No Limitations Feather Shaper Required: No Beliefs That Will Affect Care: None marital status: marital status details: Kiko Rodriguez Current Living Situation: Spouse and Family Current Living Situation Comment: lives with spouse, step son, cats-spouse changing litter current occupational status: employed 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 Awake, alert, mildly anxious facial expression. Speech interrupted every 3-5 words to take a breath. Eyes: No jaundice ENMT: Grossly normal; was masked initially, then patient removed mask later in visit. Neck: supple Respiratory: 3-5 word dyspnea O2 saturation 95 on RA but has been recorded as low as 93 on RA. Resp rate 22 Cardiovascular: Chest auscultation done by Dr. Aleman during the visit and not repeated by myself. 2+ pedal edema, equal bilaterally. Chest (Breasts): Additional Comments: No obvious abnormality. Breast feeding and requests pump at bedside. Gastrointestinal (Abdomen): Postgravid, incision c/d/i Musculoskeletal: Able to move extremities x4 Edema as above DTR 2+ Skin: Without rashes Genitourinary: deferred - CT a/p reviewed, uterus healing well and no evidence of collection. Results & Data Results & Data Vital Signs (Past 12 Hours) Vital Signs Temp Pulse Pulse Resp BP BP Pulse Ox 07/12/24 01:50 87 146/98 H 07/12/24 01:43 85 20 147/85 H 95 07/12/24 00:45 80 20 154/90 H 94 07/12/24 00:33 82 22 165/93 H 93 07/12/24 00:27 82 22 180/101 H 93 07/12/24 00:23 85 180/101 H 07/12/24 00:05 84 17 197/107 H 94 07/11/24 23:58 87 07/11/24 23:39 98.8 F 79 18 184/87 H 95 O2 Del Method 07/12/24 01:50 07/12/24 01:43 Room Air 07/12/24 00:45 Room Air 07/12/24 00:33 Room Air 07/12/24 00:27 Room Air 07/12/24 00:23 07/12/24 00:05 Room Air 07/11/24 23:58 07/11/24 23:39 Room Air PG Care Time/CCT Total # of Minutes Spent Total Time Spent with Patient: Total time spent is greater than 50% in coordination of care (as documented) at patient's floor/unit and/or counseling patient: Coding Level of Care Code 16225 INT INP/OBS CARE 3/75MIN Diagnoses Peripartum cardiomyopathy, O90.3 Pneumonia J18.9 Parainfluenza B34.8 Pre-eclampsia O14.90
[2024-07-12] MEDS ORDERED: ALBUT/IPRATROP 3MG/0.5MG NEB 3 ML VIAL NEB PRN (03:09)
--- NOTE | 2024-07-12 03:15 | History & Physical Report ---
Date of Service July 12, 2024 Assessment & Plan (1) Pneumonia involving right lung: (2) Peripartum cardiomyopathy, : (3) Hypertensive urgency: (4) Parainfluenza: (5) Pre-eclampsia: Plan The patient is a 33-year-old female with past medical history including allergic symptoms, hypertensive urgency, recent with preeclampsia, obesity, back pain affecting , and concerns regarding cardiomyopathy.The patient is referred to the emergency department by PULMONARY FUNCTION TECHNOLOGIST Dr. Cantu, due to symptoms of fever, chills, cough, chest pain and worsening dyspnea over the past day. Underwent complicated by bilateral cervical extensions of hysterotomy during admission from 07/04/2024 through 07/10/2024. She has been taking Tylenol and Motrin for pain, had also taken Robitussin and Zyrtec earlier in the day of admission. Upon arrival to the emergency department this evening, there were concerns regarding cardiomyopathy. Patient was also noted to have a chest x-ray and CT a of chest suggestive of aspiration pneumonia right lower lobe, and was negative for pulmonary emboli. Respiratory BioFire testing positive for parainfluenza virus. Patient was referred for evaluation for [facility] to the [facility], and patient is being admitted directly to the ICU for further evaluation and treatment. #Parainfluenza infection/secondary right lower lobe parapneumonic effusion- Placed on Zosyn 4.5 g IV every 8 hours Azithromycin 500 mg IV daily Methylprednisolone 60 mg IV now, then 40 mg IV every 12 hours DuoNebs every 2 hours as needed Mucinex 600 mg p.o. every 12 hours MRSA swab ordered, add coverage if positive peripartum cardiomyopathy- The patient will be admitted to ICU for serial cardiac enzymes, serial EKG's, cardiac rhythm monitoring and a 2-D echocardiogram with Dopplers. Screening echocardiogram in the emergency department suggested overall normal ejection fraction Patient did receive labetalol 20 mg IV in the ED, with improvement in hypertensive urgency. Consult cardiology Consult PULMONARY FUNCTION TECHNOLOGIST Dr. Cantu History of Present Illness Chief Complaint: The patient is referred to the emergency department by PULMONARY FUNCTION TECHNOLOGIST Dr. Cantu, due to symptoms of fever, chills, cough, chest pain and worsening dyspnea over the past day. Underwent complicated by bilateral cervical extensions of hysterotomy during admission from 07/04/2024 through 07/10/2024. She has been taking Tylenol and Motrin for pain, had also taken Robitussin and Zyrtec earlier in the day of admission. Upon arrival to the emergency department this evening, there were concerns regarding cardiomyopathy. Patient was also noted to have a chest x-ray and CT a of chest suggestive of aspiration pneumonia right lower lobe, and was negative for pulmonary emboli. Patient was referred for evaluation for admission to the [facility], and patient is being admitted directly to the ICU for further evaluation and treatment Primary Care Provider: NO PCP The patient is a 33-year-old female with past medical history including allergic symptoms, hypertensive urgency, recent with preeclampsia, obesity, back pain affecting , and concerns regarding cardiomyopathy.The patient is referred to the emergency department by PULMONARY FUNCTION TECHNOLOGIST Dr. Cantu, due to symptoms of fever, chills, cough, chest pain and worsening dyspnea over the past day. Underwent complicated by bilateral cervical extensions of hysterotomy during admission from 07/04/2024 through 07/10/2024. She has been taking Tylenol and Motrin for pain, had also taken Robitussin and Zyrtec earlier in the day of admission. Upon arrival to the emergency department this evening, there were concerns regarding cardiomyopathy. Patient was also noted to have a chest x-ray and CT a of chest suggestive of aspiration pneumonia right lower lobe, and was negative for pulmonary emboli. Patient was referred for evaluation for admission to the [facility], and patient is being admitted directly to the ICU for further evaluation and treatment Allergies Allergy/AdvReac Type Severity Reaction Status Date / Time Beef Containing Products Allergy Gastrointestinal Verified 07/05/24 09:29 Upset dextromethorphan AdvReac Intermediate Gastrointestinal Verified 07/05/24 08:15 [From NyQuil] Upset doxylamine [From NyQuil] AdvReac Intermediate Gastrointestinal Verified 07/05/24 08:15 Upset pseudoephedrine [From NyQuil] AdvReac Intermediate Gastrointestinal Verified 07/05/24 08:15 Upset Home Medications Medication Instructions Recorded Confirmed Type docosahexaenoic acid 200 mg 1 mg PO DAILY 03/08/24 07/12/24 History capsule ( DHA) cetirizine 10 mg tablet (Zyrtec) 10 mg PO DAILY 07/05/24 07/12/24 History oxycodone 5 mg tablet 5 mg PO Q8H PRN pain #10 tabs 07/08/24 07/12/24 Rx Past Med/Surg History Problem List (Updated 07/12/24 @ 05:05 by Salazar Shaw MD) Pneumonia involving right lung Hypertensive urgency Parainfluenza Pneumonia Peripartum cardiomyopathy, delivery delivered Pre-eclampsia Dx at 35 weeks. Encounter for induction of labor Hypertension affecting in third trimester Obesity affecting , antepartum Pyelectasis of fetus on ultrasound Back pain affecting Encounter for anatomic survey Supervision of normal first Medical History Encounter for pre-operative examination Migraine Varicella vaccination No pertinent family history Irritable bowel syndrome (IBS) Ovarian cyst Surgical History S/P cubital tunnel release Family History Grandfather (Maternal) Colorectal cancer Father Hypertension Grandmother (Paternal) Heart disease Grandfather (Paternal) Stroke Grandmother (Maternal) Stroke Denies family history of Ovarian cancer Breast cancer Social History Smoking Status: Never smoker Do You Dip or Chew Tobacco: No; Hx Alcohol Use: No Hx Substance Use: No Preferred Language: Jamaican Visual Impairment: No Limitations Interior Design Consultant Required: No Beliefs That Will Affect Care: None marital status: marital status details: Kiko Rodriguez Current Living Situation: Spouse and Family Current Living Situation Comment: lives with spouse, step son, cats-spouse changing litter current occupational status: employed 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 Feels Safe at Home: Yes Assistive Devices: None Review of Systems Review of Systems: The patient denies palpitations, vomiting, diarrhea , constipation, abdominal pain, pelvic pain, blood in urine or stool, dysuria, urinary frequency or urgency, memory loss, loss of consciousness, rash, abnormal bruising or bleeding, focal weakness, numbness or tingling in arms or legs, neck pain, or night sweats. The review of systems is otherwise negative other than for that already noted above, and at least 10 systems have been reviewed. Physical Exam Physical Exam: The patient is awake, alert and oriented 3, well developed and well nourished, normocephalic and atraumatic, lying in bed and in no acute distress. HEENT--PERRL, EOMI, mucous membranes and oropharynx. Neck--supple. No JVD. No bruits. Thyroid normal, trachea midline, no adenopathy. Heart--normal S1 and S2. No murmurs, rubs or gallops. Lungs--decreased breath sounds right base. No respiratory distress, no accessory muscle use. Abdomen--normal bowel sounds and soft. Nontender. Nondistended, no hernias or masses, no organomegaly. Extremities--no cyanosis or clubbing. No edema. Dermatologic--normal skin turgor, normal color, no abnormal lymph nodes, no rash. Neurologic--cranial nerves II through XII grossly intact. Rheumatologic--normal range of motion. Psychiatric--normal affect. Results & Data Results & Data Vital Signs (Past 12 Hours) Vital Signs Temp Pulse Pulse Resp BP BP Pulse Ox 07/12/24 01:50 87 146/98 H 07/12/24 01:43 85 20 147/85 H 95 07/12/24 00:45 80 20 154/90 H 94 07/12/24 00:33 82 22 165/93 H 93 07/12/24 00:27 82 22 180/101 H 93 07/12/24 00:23 85 180/101 H 07/12/24 00:05 84 17 197/107 H 94 07/11/24 23:58 87 07/11/24 23:39 37.1 C 79 18 184/87 H 95 O2 Del Method 07/12/24 01:50 07/12/24 01:43 Room Air 07/12/24 00:45 Room Air 07/12/24 00:33 Room Air 07/12/24 00:27 Room Air 07/12/24 00:23 07/12/24 00:05 Room Air 07/11/24 23:58 07/11/24 23:39 Room Air Laboratory Results Laboratory Results WBC 14.81 K/ul (4.8-10.8) H 07/11/24 23:58 RBC 3.32 M/uL (4.20-5.40) L 07/11/24 23:58 Hgb 10.1 g/dl (12.0-16.0) L 07/11/24 23:58 POC Hgb 9.5 g/dl (12.0-16.0) L 07/12/24 00:04 Hct 29.8 % (37.0-47.0) L 07/11/24 23:58 POC Hct 28 % (37-47) L 07/12/24 00:04 MCV 89.8 fL (80.0-100.0) 07/11/24 23:58 MCH 30.4 pg (25.0-34.0) 07/11/24 23:58 MCHC 33.9 g/dL (32.0-36.0) 07/11/24 23:58 RDW Std Deviation 43.7 fL (36.4-46.3) 07/11/24 23:58 RDW Coeff of Mary 13.3 % (11.5-14.5) 07/11/24 23:58 Plt Count 324 K/uL (130-400) 07/11/24 23:58 MPV 9.5 fL (9.4-12.4) 07/11/24 23:58 Immature Gran % (Auto) 1.0 % 07/11/24 23:58 Neut % (Auto) 83.2 % 07/11/24 23:58 Lymph % (Auto) 10.5 % 07/11/24 23:58 Falls % (Auto) 4.9 % 07/11/24 23:58 Eos % (Auto) 0.3 % 07/11/24 23:58 Baso % (Auto) 0.1 % 07/11/24 23:58 Neut # (Auto) 12.32 K/uL (1.40-6.50) H 07/11/24 23:58 Lymph # (Auto) 1.55 K/uL (1.20-3.40) 07/11/24 23:58 Falls # (Auto) 0.73 K/uL (0.11-0.59) H 07/11/24 23:58 Eos # (Auto) 0.05 K/uL (0.00-0.50) 07/11/24 23:58 Baso # (Auto) 0.01 K/uL (0.00-0.20) 07/11/24 23:58 Immature Gran # (Auto) 0.15 K/uL (0.01-0.20) 07/11/24 23:58 PT 10.0 Seconds (9.0-12.0) 07/11/24 23:58 INR 0.9 (0.9-1.1) 07/11/24 23:58 APTT 27 Seconds (21-31) 07/11/24 23:58 PTT Ratio 1.0 07/11/24 23:58 POC Sodium 139 mmol/L (135-144) 07/12/24 00:04 Sodium 140 mmol/L (136-145) 07/11/24 23:58 POC Potassium 3.6 mmol/L (3.3-5.0) 07/12/24 00:04 Potassium 3.7 mmol/L (3.5-5.1) 07/11/24 23:58 POC Chloride 106 mmol/L (101-112) 07/12/24 00:04 Chloride 108 mmol/L (98-107) H 07/11/24 23:58 Carbon Dioxide 24 mmol/L (21-32) 07/11/24 23:58 POC Total CO2 23 mmol/L (24-31) L 07/12/24 00:04 Anion Gap 8 (3-11) 07/11/24 23:58 POC Anion Gap 15.0 mmol/L (16-25) L 07/12/24 00:04 POC BUN 9 mg/dl (7-18) 07/12/24 00:04 BUN 11 mg/dl (6-23) 07/11/24 23:58 Creatinine 0.61 mg/dl (0.6-1.2) 07/11/24 23:58 POC Creatinine 0.7 mg/dl (0.6-1.3) 07/12/24 00:04 Est Cr Clr Drug Dosing 153.6 ml/min 07/11/24 23:58 eGFR 120.99 07/11/24 23:58 BUN/Creatinine Ratio 18.0 (10-20) 07/11/24 23:58 Glucose 102 mg/dl (70-99(Fasting)) H 07/11/24 23:58 POC Glucose (other) 102 mg/dl (70-99) H 07/12/24 00:04 Lactate 0.4 mmol/L (0.4-2.0) 07/11/24 23:54 Calcium 8.3 mg/dl (8.6-10.3) L 07/11/24 23:58 POC Ioniz Calcium Leydi 1.15 mmol/l (1.12-1.32) 07/12/24 00:04 Magnesium 2.0 mg/dl (1.7-2.4) 07/11/24 23:58 Total Bilirubin 0.4 mg/dl (0.2-1.0) 07/11/24 23:58 Direct Bilirubin 0.1 mg/dl (0-0.2) 07/11/24 23:58 AST 17 U/L (13-39) 07/11/24 23:58 ALT 13 U/L (7-52) 07/11/24 23:58 Alkaline Phosphatase 95 U/L (34-104) 07/11/24 23:58 Troponin I High Sens 10.2 pg/ml (0-14) 07/11/24 23:58 B-Natriuretic Peptide 312 pg/ml (0-100) H 07/11/24 23:54 Total Protein 6.2 gm/dl (6.0-8.3) 07/11/24 23:58 Albumin 3.2 gm/dl (3.4-5.0) L 07/11/24 23:58 Procalcitonin 0.07 ng/ml (0-0.5) 07/11/24 23:58 TSH 2.410 uIu/ml (0.300-4.500) 07/11/24 23:58 Urine Color Yellow 07/12/24 00:04 Urine Appearance Clear (Clear) 07/12/24 00:04 Urine pH 6.5 (4.5-7.5) 07/12/24 00:04 Ur Specific [place] 1.009 (1.000-1.030) 07/12/24 00:04 Urine Protein Negative (Negative) 07/12/24 00:04 Urine Glucose (UA) Negative (Negative) 07/12/24 00:04 Urine Ketones Negative (Negative) 07/12/24 00:04 Urine Blood 2+ (Negative) H 07/12/24 00:04 Urine Nitrite Negative (Negative) 07/12/24 00:04 Urine Bilirubin Negative (Negative) 07/12/24 00:04 Urine Urobilinogen Negative (Negative) 07/12/24 00:04 Ur Leukocyte Esterase 1+ (Negative) H 07/12/24 00:04 Urine WBC (Auto) 6-10 /hpf (0-5) H 07/12/24 00:04 Urine RBC (Auto) 3-5 /hpf (0-2) H 07/12/24 00:04 U Hyaline Cast (Auto) 0-2 /lpf (0-2) 07/12/24 00:04 U Epithel Cells (Auto) 0-2 /hpf (0-2) 07/12/24 00:04 Urine Bacteria (Auto) None Seen (None Seen) 07/12/24 00:04 Ur Random Creatinine 32.6 mg/dl 07/12/24 00:04 U Random Total Protein 9.6 mg/dl (0-11.9) 07/12/24 00:04 Protein/Creatinin Ratio 0.3 (0-0.2) H 07/12/24 00:04 Nasal Screen MRSA (PCR) Negative (Negative) 07/12/24 03:25 Adenovirus (PCR) Not Detected (NotDetected) 07/12/24 00:00 B. pertussis DNA (PCR) Not Detected (NotDetected) 07/12/24 00:00 B.parapertussis DNA PCR Not Detected (NotDetected) 07/12/24 00:00 C. pneumoniae DNA (PCR) Not Detected (NotDetected) 07/12/24 00:00 Coronavirus OC43 (PCR) Not Detected (NotDetected) 07/12/24 00:00 Coronavirus HKU1 (PCR) Not Detected (NotDetected) 07/12/24 00:00 Coronavirus 229E (PCR) Not Detected (NotDetected) 07/12/24 00:00 SARS-CoV-2 (PCR) Not Detected (NotDetected) 07/12/24 00:00 Coronavirus NL63 (PCR) Not Detected (NotDetected) 07/12/24 00:00 Human Metapneumovir PCR Not Detected (NotDetected) 07/12/24 00:00 Influenza Type A (PCR) Not Detected (NotDetected) 07/12/24 00:00 Influenza Type B (PCR) Not Detected (NotDetected) 07/12/24 00:00 M. pneumoniae (PCR) Not Detected (NotDetected) 07/12/24 00:00 Parainfluenza 1 (PCR) Not Detected (NotDetected) 07/12/24 00:00 Parainfluenza 2 (PCR) Not Detected (NotDetected) 07/12/24 00:00 Parainfluenza 3 (PCR) DETECTED (NotDetected) A 07/12/24 00:00 Parainfluenza 4 (PCR) Not Detected (NotDetected) 07/12/24 00:00 RSV (PCR) Not Detected (NotDetected) 07/12/24 00:00 Entero/Rhino (PCR) Not Detected (NotDetected) 07/12/24 00:00 Impressions Chest X-Ray 07/11/24 23:58 EXAM: XR chest 1V portable CLINICAL HISTORY: Sepsis TECHNIQUE: An X-ray image of the chest is obtained in AP projection. COMPARISON: No prior studies are available for comparison. FINDINGS: Pulmonary Parenchyma: Bilateral hilar congestion noted. Prominent bronchovascular and interstitial markings noted in bilateral lung [place]. Haziness noted in right lower zone obscuring right hemidiaphragm, could be due to parenchymal opacities and pleural effusion. Heart and Mediastinum: Cardiomegaly. No mediastinal widening or masses. No hilar or mediastinal lymphadenopathy. Bony Thorax: Bony thorax appears intact without fractures or deformities. Soft Tissues: Soft tissues overlying the chest wall are unremarkable. IMPRESSION: 1. Bilateral hilar congestion noted. 2. Prominent bronchovascular and interstitial markings noted in bilateral lung [place]. 3. Haziness noted in right lower zone, obscuring the right hemidiaphragm?could be due to parenchymal opacities and pleural effusion, infective. 4. Cardiomegaly. Electronically signed by Matheus Dawson 07-12-2024 01:19 AM Abdomen/Pelvis CT 07/12/24 00:05 EXAM: CT abd pelvis IV con only CLINICAL HISTORY: abd pain, fever, 5 days ago TECHNIQUE: Multiple contiguous axial images were obtained from the level of diaphragm to the pubis symphysis. This study was acquired after the IV administration of iodinated contrast material, given the patients indications for the examination. If IV contrast material had not been administered, the likelihood of detecting abnormalities relevant to the patients condition would have been substantially decreased. Coronal and sagittal reformatted images were generated and reviewed to improve anatomic localization and optimize lesion detection. CT scan was performed according to ALARA (as low as reasonable achievable). COMPARISON: . None FINDINGS: The visualized lung bases show right mild pleural effusion with subsegmental collapse consolidation in right lower lobe. ABDOMEN/PELVIS: The liver is enlarged in size ~ 22 cm with normal attenuation. No focal liver lesions are seen. There is no intra or extrahepatic biliary ductal dilatation. Hepatic vasculature is patent. The gallbladder is unremarkable. The spleen, pancreas, and adrenal glands are unremarkable. The kidneys are normal in size and attenuation. There is no hydronephrosis or perinephric fat stranding. No renal calculi or renal masses are identified. The ureters are normal in caliber and no ureteral calculi are seen. The bladder is normal in contour. No evidence of focal or diffuse bowel wall thickening or evidence of bowel obstruction is seen. No inflamed appendix is visualized in the right lower quadrant. No adenopathy or fluid collections are seen. The aorta is normal in caliber. No aggressive appearing osseous lesions are identified. Post operative changes noted in the form of stranding along the scar site in the anterior abdominal wall. Uterus is diffusely bulky due to recent post status. No obvious drainable collection noted or ascites.. IMPRESSION: 1 Post operative changes noted in the form of stranding along the scar site in the anterior abdominal wall. 2 Uterus is diffusely bulky due to recent post status. 3 No obvious drainable collection noted or ascites. 4 Marked hepatomegaly 5 Right mild pleural effusion with subsegmental collapse consolidation in right lower lobe. Electronically signed by Vignesh Christie 07-12-2024 01:48 AM Chest CTA 07/12/24 00:05 EXAM: CT angio chest PE protocol CLINICAL HISTORY: PE, recent delivery, HTN, fever TECHNIQUE: Contiguous axial images were obtained from the neck base through the upper abdomen following intravenous administration of iodinated contrast material. Angiographic images were processed, 3D MIP images were acquired for interpretation. If IV contrast material had not been administered, the likelihood of detecting abnormalities relevant to the patient's condition would have been substantially decreased. Coronal and sagittal 3-D MIPs were likewise performed and indicated to increase the sensitivity of detectin diffuse clinically relevant pathology. CT scan was performed according to ALARA (as low as reasonable achievable). COMPARISON: . None. FINDINGS: Adequate contrast bolus without evidence of pulmonary embolism. The central airways are patent. The lungs are otherwise clear. Right mild pleural effusion with segmental collapse-consolidation of right lower lobe The heart, aorta, and pulmonary arteries are of nor mal size and configuration. There are no appreciable coronary artery and aortic atherosclerotic calcifications. No pericardial effusion is identified. The thyroid is mildly bulky. No mediastinal, hilar, or axillary lymphadenopathy is noted. No suspicious lytic or sclerotic osseous lesions are identified. IMPRESSION: 1 Right mild pleural effusion with segmental collapse-consolidation of right lower lobe: Could represent bacterial infection 2 Suboptimal scan due to early acquisition of CT angio as contrast is noted in SVC with streak artefact 3 No obvious evidence of pulmonary embolism Electronically signed by Vignesh Christie 07-12-2024 01:37 AM Code Status & VTE Plan Code Status Full code VTE Prophylaxis Plan VTE Prophylaxis will be ordered: Yes PG Care Time/CCT Total # of Minutes Spent Total Time Spent with Patient: Total time spent is greater than 50% in coordination of care (as documented) at patient's floor/unit and/or counseling patient: Coding Level of Care Code 00505 INT INP/OBS CARE 3/75MIN Diagnoses Pneumonia involving right lung J18.9 Peripartum cardiomyopathy, O90.3 Hypertensive urgency I16.0 Parainfluenza B34.8 Pre-eclampsia O14.90
--- NOTE | 2024-07-12 03:51 | Critical Care Consultation ---
Date of Consultation July 12, 2024 Assessment & Plan (1) Peripartum cardiomyopathy, : (2) Parainfluenza: (3) Pneumonia: (4) Pre-eclampsia: (5) Hypertensive urgency: Plan Reason Critically Ill: 1. Concern for rain- cardiomyopathy 2. Hypertensive urgency, improved 3. Parainfluenza pneumonia with uncomplicated parapneumonic effusion Neuro - RASS GOAL 0 Multimodal pain management APAP PRN pain/fever Can consider Ibuprofen given lack of DEEPA (Toradol contraindicated in early ) Cardiac - With her history of pre-eclampsia and current symptoms she certainly presents as high risk of PPCM. POCUS is limited, and though a significant reduction is EF is not noted, there is some dilation and there may be decrease on formal examination No current indication to diurese Consider combination oral hydralazine and isosorbide for afterload reduction if hypertension recurs. Goal SBP < 130mmHg Formal TTE in AM Troponin is WNL, BNP mildly elevated Respiratory - SpO2 goal > 92% IS/Flutter HOB 30 No indication for drainage of effusion Supportive care GI - Diet: Advance as tolerated SUP: N/A Bowel regimen: Miralax RENAL/LYTES - No acute concerns Replete electrolytes as indicated No indication for joe catheter Maintain net even to net negative, hold on diuresis at this juncture ENDO - BG 140-180 per SCCM guidelines ISS if needed while inpatient Will add TSH to admission labs HEME/ONC/OTHER - HGB stable Daily CBC Obstetrics is following, appreciate continued recommendations ID - Empiric coverage with Zosyn/Azithromycin start as she was just discharged from the hospital BC x2 pending, procalcitonin negative, MRSA pending Do not have high suspicion for superimposed bacterial process, can likely de- escalate antibiotics sooner than later pending clinical course LINES/TUBES/DRAINS - PIV x2 DVT PROPHYLAXIS - Lovenox DISPOSITION - ICU overnight, downgrade pending clinical course I have personally spent 42 minutes of critical care time in the direct management of this patient. This is a life/limb threatening event. This includes time spent evaluating patient, direct bedside care, chart review, placing orders, interpretation of diagnostic studies, discussion with consultants, patient, and family members, as well as other required patient management activities. This time is exclusive of all separately billable procedures, and teaching time and separate from and in addition to any other critical care service time. Thank you for allowing us to participate in the care of this patient. Please refer to my attending physician's documentation for any further recommendations. Supervising Physician Co-Signing Physician Notes Clinical update at 10:00 I have personally evaluated and examined this patient. I agree with assessment and plan of Sabrina Ernst PA-C During my evaluation patient had mild chest pain radiating from back to anterior chest worse with laying back improved when leaning forward, worse when nearing time to pump breast milk. Pain gone with best positioning. No exertional component. Lower extremity edema worse than prior to deliver. No vision changes. + cough, no fever. We have a probable source of influenza, patient would like to breast feed or pump and utilize breast milk. Therefore the benefit of breast feeding outweighs the risk of ongoing antibiotics. Additionally, hemodynamics are reassuring, therefore we will discontinue afterload reduction. Awaiting formal echo report. need to rule out pericarditis based on clinical complaints. will allow ibuprofen for chest pains. right sided effusion likely parapneumonic related to parainfluenza. Bedside US by overnight provider states fluid is simple in nature. Stable for downgrade out of ICU. History of Present Illness Reason for Consultation: Hypertensive urgency Requesting Physician: Colin Attending Physician: Colin History of Present Illness Ms. Rianna Rodriguez is a pleasant 33YOF with a history of obesity, pre-ecampsia, s/p section 07/06/2024 (1L EBL) who presents to [facility] ED on 07/12/2024 early AM due to fever/chills, dry cough, and dyspnea x2 days. Patient hypertension in the ED as high as 197/107 requiring Labetalol 20mg with improvement. Patient noted orthopnea, lack of improvement in pedal edema, pleuritic chest pain, and conversational dyspnea. Work-up revealing mild elevation in BNP, normal troponin, non-ischemic EKG, leukocytosis with neutrophil predominance, + Parainfluenza. Imaging negative for PE, but showing Small R pleural effusion with subsegmental collapse and consolidation of RLL concerning for bacterial process with parapneumonic effusion. UA negative for protein or infection. Rianna received Zosyn, methylprednisolone, Ofirmev, and 1L NSS during ED course. Her incision is healing well without significant discomfort or signs of infection. No increased vaginal bleeding or abnormal discharge. ICU was consulted due to concern for peripartum cardiomyopathy with need for close monitoring. Patient was seen in ED C03. She is AAOx3. Mother at bedside. She reiterates the above information. She denies wet cough, n/v/d, vision changes, headache. No one at home has similar symptoms. Noted her pedal edema started around week 35-36 and has not improved, possibly slightly worse now. She has been urinating normally. POCUS performed in ED. Dilation of LV as well as modest gross reduction of LVEF noted. IVC is normal size with >50% collapsibility. Valves not assessed on this brief examination. R pleural effusion appears simple/free flowing. I shared with mom and daughter that on these brief images I am not seeing obvious WMA, severe LV dysfunction. There is possibility of PPCM which will be further evaluated with formal TTE, though I do feel this can wait until the AM given my findings. Allergies Allergy/AdvReac Type Severity Reaction Status Date / Time Beef Containing Products Allergy Gastrointestinal Verified 07/05/24 09:29 Upset dextromethorphan AdvReac Intermediate Gastrointestinal Verified 07/05/24 08:15 [From NyQuil] Upset doxylamine [From NyQuil] AdvReac Intermediate Gastrointestinal Verified 07/05/24 08:15 Upset pseudoephedrine [From NyQuil] AdvReac Intermediate Gastrointestinal Verified 07/05/24 08:15 Upset Home Medications Medication Instructions Recorded Confirmed Type docosahexaenoic acid 200 mg 1 mg PO DAILY 03/08/24 07/12/24 History capsule ( DHA) cetirizine 10 mg tablet (Zyrtec) 10 mg PO DAILY 07/05/24 07/12/24 History oxycodone 5 mg tablet 5 mg PO Q8H PRN pain #10 tabs 07/08/24 07/12/24 Rx Patient History Medical History Encounter for pre-operative examination Migraine Varicella vaccination No pertinent family history Irritable bowel syndrome (IBS) Ovarian cyst Surgical History S/P cubital tunnel release Family History Grandfather (Maternal) Colorectal cancer Father Hypertension Grandmother (Paternal) Heart disease Grandfather (Paternal) Stroke Grandmother (Maternal) Stroke Denies family history of Ovarian cancer Breast cancer Social History Smoking Status: Never smoker Do You Dip or Chew Tobacco: No; Hx Alcohol Use: No Hx Substance Use: No Preferred Language: Bahamian Communication Ability: Effective Visual Impairment: No Limitations Extension Service Supervisor Required: No Beliefs That Will Affect Care: None marital status: marital status details: Kiko Rodriguez Current Living Situation: Spouse Current Living Situation Comment: lives with spouse, step son, cats-spouse changing litter current occupational status: employed 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 Feels Safe at Home: Yes Assistive Devices: None Review of Systems Review of Systems: All systems reviewed & are unremarkable except as noted in Subjective Physical Exam Constitutional: well developed and + obese; no acute distress and not ill appearing Eyes: PERRL, conjunctivae normal, anicteric sclerae ENMT: external ear and nose normal, oropharynx normal Neck: trachea midline, no thyromegaly No JVD Respiratory: + dullness to percussion, + cough and sy mmetric chest movement; no respiratory distress Auscultation: + crackles Diminished at R base with crackles noted, otherwise CTA Cardiovascular: Rate/Rhythm: regular rate and regular rhythm Chest (Breasts): Breast: normal inspection of breasts Gastrointestinal (Abdomen): Inspection/Auscultation: + abdominal surgical incision Incision with wound vac in place is C/D/I without dehiscence, drainage, or signs of infection. Bowel sounds WNL. She is tender about the lower abdomen Skin: normal turgor Results & Data Results & Data Vital Signs (Past 12 Hours) Vital Signs Temp Pulse Pulse Resp BP BP Pulse Ox 07/12/24 03:21 80 28 H 93 07/12/24 03:18 83 20 94 07/12/24 03:15 128/69 07/12/24 03:15 128/69 07/12/24 03:15 128/69 07/12/24 03:00 117/74 07/12/24 02:45 153/81 H 07/12/24 02:42 88 22 95 07/12/24 02:30 138/87 07/12/24 02:15 151/80 H 07/12/24 02:00 155/90 H 07/12/24 02:00 155/90 H 07/12/24 01:50 87 146/98 H 07/12/24 01:45 146/98 H 07/12/24 01:43 85 20 147/85 H 95 07/12/24 00:45 80 20 154/90 H 94 07/12/24 00:33 82 22 165/93 H 93 07/12/24 00:27 82 22 180/101 H 93 07/12/24 00:23 85 180/101 H 07/12/24 00:05 84 17 197/107 H 94 07/11/24 23:58 87 07/11/24 23:39 37.1 C 79 18 184/87 H 95 O2 Del Method 07/12/24 03:21 07/12/24 03:18 07/12/24 03:15 07/12/24 03:15 07/12/24 03:15 07/12/24 03:00 07/12/24 02:45 07/12/24 02:42 07/12/24 02:30 07/12/24 02:15 07/12/24 02:00 07/12/24 02:00 07/12/24 01:50 07/12/24 01:45 07/12/24 01:43 Room Air 07/12/24 00:45 Room Air 07/12/24 00:33 Room Air 07/12/24 00:27 Room Air 07/12/24 00:23 07/12/24 00:05 Room Air 07/11/24 23:58 07/11/24 23:39 Room Air Laboratory Results Reviewed Diagnostic Findings Reviewed Medications Administered See [facility] Coding Level of Care Code 47507 CRITICAL CARE 1ST 30-74M Diagnoses Peripartum cardiomyopathy, O90.3 Parainfluenza B34.8 Pneumonia J18.9 Pre-eclampsia O14.90 Hypertensive urgency I16.0 Time Spent (min) 42
[2024-07-12 04:51] LABS: Thyroid Stimulating Hormone 2.41 uIu/ml (0.300-4.500)
[2024-07-12] MEDS: hydrALAZINE 10 MG TAB PO ONE (05:21)
[2024-07-12] MEDS: PIPERACILLIN/TAZOBACTAM 4.5 GM/100 ML BAG IV SCH (05:21)
[2024-07-12] MEDS: methylPREDNISolone 60 MG in SYRINGE 0 ML IV STA (05:21)
[2024-07-12] MEDS: AZITHROMYCIN 500 MG/255 ML BAG IV SCH (05:21)
[2024-07-12] MEDS: hydrALAZINE HCL 20 MG/ML VIAL IV ONE (06:18)
[2024-07-12 06:24] LABS: BUN Creatinine Ratio 15.7 (10-20); Bilirubin,Total 0.4 mg/dl (0.2-1.0); Calcium 8.1 mg/dl (8.6-10.3); Creatinine Clr Calc Pharmacy 183.7 ml/min; Globulin 3.1 gm/dl (2.5-4.0); Phosphorus 3.9 mg/dl (2.5-4.9); Potassium 3.2 mmol/L (3.5-5.1); Total Protein 6.1 gm/dl (6.0-8.3)
[2024-07-12 06:31] LABS: Troponin I High Sensitivity 9.8 pg/ml (0-14)
[2024-07-12] MEDS: ICU ELECTROLYTE REPLACEMENT PROTOCOL SCH ×2 (07:18→07:27)
[2024-07-12] MEDS ORDERED: Nursing to Pharmacy Communication SCH (07:30)
[2024-07-12] MEDS: ICU Protocol for HYPERglycemia SCH (07:44)
[2024-07-12] MEDS: POTASSIUM CHLORIDE CRTAB 20 MEQ TABCR PO STA (07:49)
[2024-07-12] MEDS: FAMOTIDINE 20MG IV PUSH 20 MG/5 ML SYR IV SCH (07:49)
--- NOTE | 2024-07-12 08:15 | Hospitalist Progress Note ---
Date of Service July 12, 2024 Assessment & Plan Plan Patient in ICU with HIDE EXAMINER following #Pneumonia - R lower lobe consolidation - s/p less than 1 week ago; awake and unintubated, but cannot r/o aspiration - Parainfluenza positive on Biofire - BC x2 pending, procalcitonin negative, MRSA pending - abx d/c'd - Daily CBC #Peripartum cardiomyopathy, - Suspected based on cardiomegaly, effusions, edema, elevated BNP - troponin WNL - Echo showed possible dilation of LV as well as modest gross reduction of LVEF noted per ICU note - TTE in AM - Toradol 15mg IV given once - Begin ibuprofen 800mg TID; no colchicine at this time d/t #Preeclampsia - Dx met in late , resolved after delivery - Possibly related to cardiomyopathy - PIH (-induced HTN) labs reassuring - Per OB, consider combination oral hydralazine and isosorbide for afterload reduction if hypertension recurs. Goal SBP < 130mmHg Admission and Anticipated Discharge Date Admission Date: July 12, 2024 Subjective The patient is a 33-year-old female with past medical history including allergic symptoms, hypertensive urgency, recent with preeclampsia, obesity, back pain affecting , pedal edema beginning in weeks 35-36 of , and concerns regarding cardiomyopathy. The patient is referred to the emergency department by HIDE EXAMINER Dr. Cantu, due to symptoms of fever, chills, cough, chest pain and worsening dyspnea over the past day. Underwent complicated by bilateral cervical extensions of hysterotomy during admission from 07/04/2024 through 07/10/2024. She has been taking Tylenol and Motrin for pain, had also taken Robitussin and Zyrtec earlier in the day of admission. Upon arrival to the emergency department this evening, there were concerns regarding cardiomyopathy. Patient was also noted to have a chest x-ray and CT a of chest suggestive of aspiration pneumonia right lower lobe, and was negative for pulmonary emboli. Respiratory BioFire testing positive for parainfluenza virus. In the ED, she received Zosyn, methylprednisolone, Ofirmev, and 1L NSS and required 20mg Labetalol for BP of 197/107. Patient was referred for evaluation for admission to the [facility], and patient was admitted directly to the ICU for further evaluation and treatment. Patient was seen this morning. She was sitting up in a chair. She reported that sitting worsened her back pain, but improved her chest pain. Her coughing is less frequent and she is able to speak more without provoking it. Overall, she reports feeling better than yesterday, although her chest and back pain are s imilar to how they were at first presentation. Physical Exam Physical Exam: General: The patient is awake, alert and oriented, sitting upright in a chair. HEENT: PERRL, EOMI, mucous membranes and oropharynx. Cardio: normal S1 and S2. No murmurs, rubs or gallops. Resp: Decreased breath sounds at the right base. Derm: No rashes or bruises, normal turgor. Extremities: no cyanosis or clubbing. Results & Data Results & Data Vital Signs (Past 12 Hours) Vital Signs Temp Pulse Pulse Resp BP BP Pulse Ox 07/12/24 07:53 37.4 C 87 22 146/74 H 94 07/12/24 06:05 07/12/24 06:04 07/12/24 05:50 162/97 H 07/12/24 05:39 86 25 H 94 07/12/24 05:20 164/97 H 07/12/24 05:15 93 H 17 93 07/12/24 05:15 22 93 07/12/24 05:12 86 16 95 07/12/24 04:57 81 24 151/82 H 94 07/12/24 04:31 07/12/24 04:20 37.3 C 85 22 161/77 H 93 07/12/24 03:21 80 28 H 93 07/12/24 03:18 83 20 94 07/12/24 03:15 128/69 07/12/24 03:15 128/69 07/12/24 03:15 128/69 07/12/24 03:00 117/74 07/12/24 02:45 153/81 H 07/12/24 02:42 88 22 95 07/12/24 02:30 138/87 07/12/24 02:15 151/80 H 07/12/24 02:00 155/90 H 07/12/24 02:00 155/90 H 07/12/24 01:50 87 146/98 H 07/12/24 01:45 146/98 H 07/12/24 01:43 85 20 147/85 H 95 07/12/24 00:45 80 20 154/90 H 94 07/12/24 00:33 82 22 165/93 H 93 07/12/24 00:27 82 22 180/101 H 93 07/12/24 00:23 85 180/101 H 07/12/24 00:05 84 17 197/107 H 94 07/11/24 23:58 87 07/11/24 23:39 37.1 C 79 18 184/87 H 95 O2 Del Method O2 Del Method 07/12/24 07:53 Room Air 07/12/24 06:05 Room Air 07/12/24 06:04 Room Air 07/12/24 05:50 07/12/24 05:39 07/12/24 05:20 07/12/24 05:15 07/12/24 05:15 Room Air 07/12/24 05:12 07/12/24 04:57 07/12/24 04:31 Room Air 07/12/24 04:20 Room Air 07/12/24 03:21 07/12/24 03:18 07/12/24 03:15 07/12/24 03:15 07/12/24 03:15 07/12/24 03:00 07/12/24 02:45 07/12/24 02:42 07/12/24 02:30 07/12/24 02:15 07/12/24 02:00 07/12/24 02:00 07/12/24 01:50 07/12/24 01:45 07/12/24 01:43 Room Air 07/12/24 00:45 Room Air 07/12/24 00:33 Room Air 07/12/24 00:27 Room Air 07/12/24 00:23 07/12/24 00:05 Room Air 07/11/24 23:58 07/11/24 23:39 Room Air
[2024-07-12] MEDS: guaiFENesin 600 MG TABCR PO SCH (08:40)
[2024-07-12] MEDS: PRENATAL VITAMIN 1 TAB PO SCH (08:40)
[2024-07-12] MEDS: CETIRIZINE HCL 10 MG TABLET PO SCH (08:40)
[2024-07-12] MEDS: ACETAMINOPHEN 500 MG TAB PO PRN (08:42)
[2024-07-12] MEDS ORDERED: hydrALAZINE HCL 25 MG TAB PO SCH (09:00)
[2024-07-12] MEDS: KETOROLAC TROMETHAMINE 15 MG/ML VIAL IV ONE (10:24)
[2024-07-12] MEDS ORDERED: methylPREDNISolone 10 mg/mL (For Ped Dose < 7mg) IV SCH (11:00)
[2024-07-12 11:16] VITALS: RESP 26; O2SAT 93
[2024-07-12 11:17] VITALS: TEMP 98.8
[2024-07-12] MEDS: POTASSIUM CHLORIDE CRTAB 20 MEQ TABCR PO ONE (11:28)
[2024-07-12 11:32] LABS: Hematocrit (blood only) 29.8 % (37.0-47.0); Mean Corpuscular Hemoglobin 29.8 pg (25.0-34.0); Mean Corpuscular Hgb Conc 33.6 g/dL (32.0-36.0); Mean Corpuscular Volume 88.7 fL (80.0-100.0); Mean Platelet Volume 9.5 fL (9.4-12.4); Platelet Count 324 K/uL (130-400); RDW Coefficient of Variation 13.4 % (11.5-14.5); RDW Standard Deviation 43.7 fL (36.4-46.3); Red Blood Count 3.36 M/uL (4.20-5.40); White Blood Count 15.03 K/ul (4.8-10.8)
[2024-07-12 11:42] LABS: BUN Creatinine Ratio 13.3 (10-20); Calcium 8.4 mg/dl (8.6-10.3); Creatinine Clr Calc Pharmacy 208.2 ml/min; Potassium 3.8 mmol/L (3.5-5.1)
[2024-07-12 11:56] LABS: Basophils # (auto) 0.03 K/uL (0.00-0.20); Basophils % (auto) 0.2 %; Immature Granulocytes # (auto) 0.48 K/uL (0.01-0.20); Immature Granulocytes % (auto) 3.2 %; Lymphocytes # (auto) 0.77 K/uL (1.20-3.40); Lymphocytes % (auto) 5.1 %; Monocytes # (auto) 0.19 K/uL (0.11-0.59); Monocytes % (auto) 1.3 %; Neutrophils # (auto) 13.56 K/uL (1.40-6.50); Neutrophils % (auto) 90.2 %; Polychromasia 1+; Toxic Granulation 1+
--- NOTE | 2024-07-12 12:35 | XCELERA ---
[id number] \\[id number]
[2024-07-12] MEDS ORDERED: IBUPROFEN 800 MG TAB PO PRN (13:18)
[2024-07-12] MEDS: cefTRIAXone SODIUM 2,000 MG/50 ML BAG IV SCH (13:26)
[2024-07-12 13:31] VITALS: PULSE 87
--- NOTE | 2024-07-12 13:32 | Discharge Summary ---
Date of Service July 12, 2024 Admission HPI Per Admitting Provider The patient is a 33-year-old female with past medical history including allergic symptoms, hypertensive urgency, recent with preeclampsia, obesity, back pain affecting , and concerns regarding cardiomyopathy.The patient is referred to the emergency department by ACCESS CONSULTANT Dr. Cantu, due to symptoms of fever, chills, cough, chest pain and worsening dyspnea over the past day. Underwent complicated by bilateral cervical extensions of hysterotomy during admission from 07/04/2024 through 07/10/2024. She has been taking Tylenol and Motrin for pain, had also taken Robitussin and Zyrtec earlier in the day of admission. Upon arrival to the emergency department this evening, there were concerns regarding cardiomyopathy. Patient was also noted to have a chest x-ray and CT a of chest suggestive of aspiration pneumonia right lower lobe, and was negative for pulmonary emboli. Patient was referred for evaluation for admission to the [facility] service, and patient is being admitted directly to the ICU for further evaluation and treatment Admission Exam Per Admitting Provider The patient is awake, alert and oriented 3, well developed and well nourished, normocephalic and atraumatic, lying in bed and in no acute distress. HEENT--PERRL, EOMI, mucous membranes and oropharynx. Neck--supple. No JVD. No bruits. Thyroid normal, trachea midline, no adenopathy. Heart--normal S1 and S2. No murmurs, rubs or gallops. Lungs--decreased breath sounds right base. No respiratory distress, no accessory muscle use. Abdomen--normal bowel sounds and soft. Nontender. Nondistended, no hernias or masses, no organomegaly. Extremities--no cyanosis or clubbing. No edema. Dermatologic--normal skin turgor, normal color, no abnormal lymph nodes, no rash. Neurologic--cranial nerves II through XII grossly intact. Rheumatologic--normal range of motion. Psychiatric--normal affect. Principal Diagnosis Pneumonia, possible pericarditis Discharge Exam General: The patient is awake, alert and oriented, sitting upright in a chair. HEENT: PERRL, EOMI, mucous membranes and oropharynx. Cardio: normal S1 and S2. No murmurs, rubs or gallops. Resp: Decreased breath sounds at the right base. Derm: No rashes or bruises, normal turgor. Extremities: no cyanosis or clubbing. Discharge Data Allergies Allergy/AdvReac Type Severity Reaction Status Date / Time Beef Containing Products Allergy Gastrointestinal Verified 07/05/24 09:29 Upset alfa Allergy Verified 07/12/24 10:37 alfa flavor Allergy Verified 07/12/24 10:37 dextromethorphan AdvReac Intermediate Gastrointestinal Verified 07/05/24 08:15 [From NyQuil] Upset doxylamine [From NyQuil] AdvReac Intermediate Gastrointestinal Verified 07/05/24 08:15 Upset pseudoephedrine [From NyQuil] AdvReac Intermediate Gastrointestinal Verified 07/05/24 08:15 Upset Consultations 07/12/24 02:49 ED Decision to Admit Stat 07/12/24 04:30 Consult Collateral Analyst Routine Ordered Studies ECHOCARDIOGRAM 07/12/24 06:37 Left ventricular systolic function is normal. No regional wall motion abnormalities noted. Left ventricular ejection fraction = 60-65%. There is mild tricuspid regurgitation. No prior study for comparison. CT angio chest PE protocol 07/12/24 00:05 IMPRESSION: 1 Right mild pleural effusion with segmental collapse-consolidation of right lower lobe: Could represent bacterial infection 2 Suboptimal scan due to early acquisition of CT angio as contrast is noted in SVC with streak artefact 3 No obvious evidence of pulmonary embolism CT abd pelvis IV con only 07/12/24 00:05 IMPRESSION: 1 Post operative changes noted in the form of stranding along the scar site in the anterior abdominal wall. 2 Uterus is diffusely bulky due to recent post status. 3 No obvious drainable collection noted or ascites. 4 Marked hepatomegaly 5 Right mild pleural effusion with subsegmental collapse consolidation in right lower lobe. XR chest 1V portable 07/11/24 23:58 IMPRESSION: 1. Bilateral hilar congestion noted. 2. Prominent bronchovascular and interstitial markings noted in bilateral lung [place]. 3. Haziness noted in right lower zone, obscuring the right hemidiaphragm?could be due to parenchymal opacities and pleural effusion, infective. 4. Cardiomegaly. Hospital Course (1) Pneumonia: #Pneumonia - R lower lobe consolidation on CT - s/p less than 1 week ago; awake and unintubated, but cannot r/o aspiration - Parainfluenza positive on Biofire - BC x2 pending, procalcitonin negative, MRSA pending - Ceftriaxone 2000mg IV given, one dose - Cefdinir for 7 days outpatient (2) Pericarditis: # pericarditis - Originally suspected cardiomyopathy based on cardiomegaly, effusions, edema, elevated BNP - troponin WNL - TTE in AM showed: - normal left ventricular systolic function - no regional wall motion abnormalities - LVEF 60-65% - mild tricuspid regurgitation - There is no prior study for comparison. - Toradol 15mg IV given once - Begin ibuprofen 800mg TID; no colchicine at this time d/t (3) Hypertensive urgency: #Preeclampsia - Dx met in late , resolved after delivery - Possibly related to cardiomyopathy - PIH (-induced HTN) labs reassuring - Per OB, consider combination oral hydralazine and isosorbide for afterload reduction if hypertension recurs. Goal SBP < 130mmHg Total Time Total Time Spent Total Time Spent (In Minutes): <30 Discharge Plan Discharge Items Patient Disposition: Home - Self-Care Reason For Visit: A.R.F W/ HYPOXIA,RLL PARNEUMONIC EFFUSION Discharge Diagnosis: parainfluenza with parapneumonic effusion Condition on Discharge: Fair Activity: Per Instructions section Non-emergency contact: Primary Care Provider Call non-emergency contact if: your pain is worsening and your temperature is above 101.5 Follow-up/Referrals: Rossi Iniguez MD [Resident] - 07/17/24 9:45 am PCP,NO [Primary Care Provider] - Diet: Regular Addtl Attending Provider Instructions: You were seen here in the hospital for shortness of breath and chest pain. You have a virus called parainfluenza virus. You did have a CT which showed a pneumonia with an associated effusion, which may be causing your chest pain. This likely led to a superimposed bacterial infection. We will treat you with antibiotics for a total of 7 days. You will take 1 tab every 12 hours starting 07/13. Take the entire course of antibiotics. There was some initial concern for heart failure on X-ray, but no signs of this were seen on CT or ECHO. There may be a component of pericarditis contributing to your symptoms - inflammation around the heart. You had marked improvement with NSAIDs. We typically treat this with colchicine, but the safety of colchicine has not been well studied in breast feeding, but if symptoms return this may be something we;d consider utilizing. You can continue to take ibuprofen 800 mg every 8 hours as needed. We have scheduled you with a hospital follow up at [address] on 07/17/[address] Iniguez at 10:00 - arrival time is 9:45. If this time does not work for you call [phone] to reschedule. Make sure to bring your insurance information. Pending Studies at Discharge: No Stand-Alone Forms: [facility], Smoking Cessation Medications and DC Order Prescriptions: New acetaminophen [Tylenol Extra Strength] 500 mg Tablet 1,000 mg PO Q8H PRNQty: 0 0RF ibuprofen 800 mg tablet 800 mg PO Q8H PRN (Reason: pain) Qty: 20 0RF cefdinir 300 mg capsule 300 mg PO BID Qty: 10 0RF Continued DHA 200 mg capsule 1 mg PO DAILY cetirizine [Zyrtec] 10 mg Tablet 10 mg PO DAILY oxycodone 5 mg tablet 5 mg PO Q8H PRN (Reason: pain) Qty: 10 0RF Discharge Orders: Discharge Order (Routine); Ordered 07/12/24 Ordered By: Rossi Iniguez Admission Data Admit Date/Time: 07/12/24 03:10 Attending Provider: Frank Agarwal Admit Provider: Salazar Shaw Primary Care Provider: PCP,NO Other Providers: Kvng Brown; Salazar Shaw Other Interventions: Discharge Summary Assessment (RN) Last Done: 07/12/24 13:30 Supervising Physician Co-Signing Physician Notes I personally examined the patient and verified all mathew points of history and exam, discussed case, and agree with decision making with Dr Iniguez and Cindi Castro MS4 feeling better overall. breathing better. pain better. vitals noted nad heent nc at mmm breathing unlabored lungs faint base R rales sl diminished breath sounds base R as well, rest of lungs cta no r/r/w good effort no accessory muscles CAP w sepsis (HR, WBC) POA - doing better, never severe sepsis/septic shock. fortunately initial concerns on cardiomyopathy did not appear to be the case, and doubt pericarditis (pneumonia alone could explain sx, EKG unremarkable, troponin unremarkable, echo without pericardial effusion - d/w pt very mild concomitant pericarditis might be impossible to rule out, but given that colchicine unclear safety in nursing we both agreed no need to treat for the possibility) - treat pneumonia w cephalosporin, safe/stable for home. outpt ob and PCP f/u next week. otherwise as above Resident Activity Tracking Resident Involvement: Resident Care Provided Care Provided: Adult Hospital Medicine
--- NOTE | 2024-07-12 14:17 | Electrocardiogram Report ---
Test Reason : Blood Pressure : */* mmHG Vent. Rate : 84 BPM Atrial Rate : 84 BPM P-R Int : 152 ms QRS Dur : 80 ms QT Int : 366 ms P-R-T Axes : 31 15 20 degrees QTcB Int : 432 ms Normal sinus rhythm Normal ECG No previous ECGs available Confirmed by Jose Luis Daniels ([id number]) on 07/12/2024 2:16:47 PM Referred By: REFERRED SELF Confirmed By: Jose Luis Daniels
--- NOTE | 2024-07-12 14:19 | Electrocardiogram Report ---
Test Reason : Blood Pressure : */* mmHG Vent. Rate : 85 BPM Atrial Rate : 85 BPM P-R Int : 136 ms QRS Dur : 82 ms QT Int : 362 ms P-R-T Axes : 22 15 18 degrees QTcB Int : 430 ms Normal sinus rhythm Normal ECG When compared with ECG of 11-Jul-2024 23:50, (unconfirmed) No significant change was found Confirmed by Jose Luis Daniels ([id number]) on 07/12/2024 2:19:06 PM Referred By: REFERRED SELF Confirmed By: Jose Luis Daniels
[2024-07-12 14:59] VITALS: BP 148/71
--- NOTE | 2024-07-12 17:09 | Billing Data ---
Date of Service July 12, 2024 Coding Level of Care Code 54265 IN/OBS DISCH 30 MIN/LESS
[2024-07-12] MEDS ORDERED: methylPREDNISolone 40 MG in SYRINGE 0 ML IV SCH (18:00)
== END 2024-07-12 14:59 | disposition home or self-care (01) | DRG 776 ==
LOC: SUATTDRO → ED 23:35 → SUATTDRO 07-12 03:10 → 1E 07-12 03:10